=== PATIENT | male | born 1975 | race Caucasian/White ===

== ENCOUNTER 2017-06-16 14:41 | Inpatient (IN) | payer SELFPAY ==
[2017-06-16 18:12] VITALS: BMI 37.0
[2017-06-16] MEDS ORDERED: Acetaminophen 325 MG TAB PO PRN (18:15)
[2017-06-16] MEDS ORDERED: Ondansetron ODT 4 MG TAB PO PRN (18:15)
[2017-06-16] MEDS ORDERED: Dextrose 50% Abboject 50 ML SYRINGE SLOW IVP PRN (18:15)
[2017-06-16] MEDS ORDERED: HYDROcodone/Acetaminophen 5/325 mg Tablet PO PRN (18:15)
[2017-06-16] MEDS ORDERED: Ondansetron HCl/PF 4 MG/2 ML Vial IVP PRN (18:15)
[2017-06-16] MEDS ORDERED: Dextrose 5% in Water 1,000 ML IV PRN (18:15)
[2017-06-16] MEDS ORDERED: HumaLOG 300 UNITS/3 ML VIAL SC PRN ×2 (18:22)
[2017-06-16] MEDS ORDERED: Furosemide 20 MG/2 ML VIAL SLOW IVP SCH (18:30)
--- NOTE | 2017-06-16 18:53 | PDOC.FPRHP ---
- History of Present Illness Chief Complaint: SOB, leg pain History of Present Illness: 42 yo CM with PMHx DM2, HTN presented to outside ED for L leg pain and SOB. Pt has been treated for LLE cellulitis with PO clindamycin since 06/10 through PCP. Pt endorses two blisters that have denuded and have oozed clear watery fluid over last couple days. Denies purulent drainage. Redness and pain have not worsened or improved per pt. Denies fevers/chills. Last cellulitic infection was 02/28 and did not require hospitalization. Pt's BG tends to run 150-200 and controlled with oral meds. Yesterday, pt endorsed new onset SOB when laying flat requiring him to sleep in a chair. This has never happened before. Endorses 1 year hx of bilateral leg swelling. Chronic dry cough. Outside hospital completed workup and transferred him to [place] due to concern for new-onset heart failure. PCP: Latesha Code status: Full ED Course: Vancomycin - Allergies/Adverse Reactions Allergies Allergy/AdvReac Type Severity Reaction Status Date / Time No Known Allergies Allergy Unverified 06/16/17 18:43 - Home Medications Medication Instructions Recorded Confirmed Type Aspirin [Aspir-Low] 81 mg PO DAILY 06/16/17 06/16/17 History Clindamycin HCl 300 mg PO TID 06/16/17 06/16/17 History Lisinopril 20 mg PO DAILY 06/16/17 06/16/17 History glipiZIDE [Glipizide] 10 mg PO BID 06/16/17 06/16/17 History metFORMIN [Glucophage] 1,000 mg PO BID-WM 06/16/17 06/16/17 History - History PMHx: DM2, HTN PSHx: strabismus repair, tendon lengthening surgery in both feet FHx: Father - DM2. Mother - from breast cancer. No siblings. Social: Smokes infrequent cigars over last 20 years. Rare alcohol use. Denies drug use. - Review of Systems General: denies: fever/chills, weight/appetite/sleep changes Eyes: denies: eye pain, vision changes ENT: denies: nasal congestion, rhinorrhea Respiratory: reports: cough, shortness of breath Cardiovascular: reports: edema, orthopnea. denies: chest pain, paroxysmal nocturnal dyspnea Gastrointestinal: denies: nausea, vomiting, diarrhea Genitourinary: denies: incontinence, dysuria Skin: reports: lesions. denies: rashes Musculoskeletal: denies: pain, tenderness Neurological: denies: syncope, weakness Psychological: denies: anxiety, depression - Vital signs BP: 141/101 HR: 103 RR: 18 Tmax: 97.8 Pox: 98% on RA Wt: 116 kg - Physical Exam Constitutional: NAD, awake, alert and oriented, well developed HEENT: PERRLA, EOMI, grossly normal hearing, MMM, good dention, other (R eye laterally deviated) Neck: FROM, no JVD Heart: RRR, normal S1/S2, no murmurs/rubs/gallops, other (2+ pitting edema LLE to knee, 1+ RLE pitting edema to knee) Lungs: no respiratory distress, good air movement, no wheezing, other ( scattered rales loudest RLL) Abdomen: soft, non-tender, bowel sounds present Musculoskeletal: normal structure, normal tone Neurological: no focal deficit, CN II-XII intact, normal sensation Skin: capillary refill <2 seconds, other (circumferential erythema LLE proximal to ankle with large denuded blisters without drainage; no fluctuance or induration, minimally TTP; skin appears stretched in BLE; venous stasis changes on RLE medial malleolus and anterior distal escudero; chronic diabetic ulcers and onychomycosis changes to bilateral feet with swan-neck type deformities of a few toes; L 2nd toe with appearance of dry gangrene at tip) Heme/Lymphatic: no purpura, no petechia Psychiatric: normal mood and affect, other (fair insight) FMR H&P: Results - Labs Result Diagrams: 06/21/17 04:32 06/21/17 04:32 Lab results: CBC: WBC 9.0, Hgb 10.8, Plt 266, MCV 66.1 CMP: Na 142, K 3.6, Cl 104, CO2 26, BUN 16, Cr 0.9, Gluc 92, Ca 9.0, TProt 7.6, Alb 3.7, AST 39, ALT 40, ALK PH 75 BNP: 520, lactate 1.8, D-dimer 1.29, UA neg, UDS neg - EKG Interpretation EKG: sinus tachycardia, complete LBBB - Radiology Interpretation Chest x-ray Status: image reviewed by me, report reviewed by me Additional comment: mild pulm vascular congetsion, borderline heart size, poss small R pleural effusion CT scan - chest Status: report reviewed by me Additional comment: small-moderate pleural effusion in RLL, mild diffuse ground glass opacities, no PE FMR H&P: A/P - Problem List (1) Cellulitis of left lower extremity Current Visit: Yes Status: Resolved Code(s): L03.116 - CELLULITIS OF LEFT LOWER LIMB Assessment and Plan: Pt has not improved on 4 days clindamycin. Will add levaquin to clindamycin for additional coverage including pseudomonas. Not concerned for MRSA at this time so will hold vanc given in ED. Afebrile with no sign of sepsis or bacteremia. Oral norco prn for pain control. Repeat CBC in AM. Lactate normal. Control BG. Wound care consulted. Admit to medical with expected 2 day stay. (2) Elevated brain natriuretic peptide (BNP) level Current Visit: Yes Status: Acute Code(s): R79.89 - OTHER SPECIFIED ABNORMAL FINDINGS OF BLOOD CHEMISTRY Assessment and Plan: New SOB with elevated BNP and signs of vascular congestion and pleural effusion on imaging were reasons for transfer to [place]. Order ECHO. Pt has chronic leg swelling for 1 year. Will give IV lasix now and monitor amount of diuresis. Continue IV vs PO in AM. Fluid restriction. Pending ECHO results, will decide necessary treatment. Not hypoxic but O2 prn. No chest pain. EKG showed LBBB but unsure if new. Trops neg x2. Repeat third. (3) Diabetes mellitus type 2, controlled Current Visit: Yes Status: Acute Code(s): E11.9 - TYPE 2 DIABETES MELLITUS WITHOUT COMPLICATIONS Qualifiers: Diabetes mellitus ferry terminal supervisor insulin use: without ferry terminal supervisor use Diabetes mellitus complication status: with neurologic complications Diabetes mellitus complication detail: with polyneuropathy Qualified Code(s): E11.42 - Type 2 diabetes mellitus with diabetic polyneuropathy Assessment and Plan: Continue home glipizide. Hold metformin in case need for contrast. SSI and accuchecks. (4) Hypertension Current Visit: Yes Status: Acute Code(s): I10 - ESSENTIAL (PRIMARY) HYPERTENSION Assessment and Plan: Continue home meds and monitor. (5) Onychomycosis of multiple toenails with type 2 diabetes mellitus and peripheral neuropathy Current Visit: Yes Status: Acute Code(s): E11.42 - TYPE 2 DIABETES MELLITUS WITH DIABETIC POLYNEUROPATHY; E11.69 - TYPE 2 DIABETES MELLITUS WITH OTHER SPECIFIED COMPLICATION; B35.1 - TINEA UNGUIUM Assessment and Plan: Chronic diabetic callous changes along with fungal changes. Needs podiatry evaluation - will attempt to consult one in AM. If unavailable, consider general surgery as concern for dry gangrene with tip of L 2nd toe. Wound care eval/tx as well. Supposed to see podiatry outpt but never went. (6) Microcytic anemia Current Visit: Yes Status: Acute Code(s): D50.9 - IRON DEFICIENCY ANEMIA, UNSPECIFIED Assessment and Plan: Microcytic anemia with Hgb 10.8. Check iron studies and treat accordingly. - Plan Disposition/LOS: Admit to medical. 2 day stay expected. Attending Addendum - Attending Addendum Date/Time: 06/21/17 4977 I personally evaluated the patient and discussed the management with Dr. Valdez. I agree with the History, Examination, Assessment and Plan documented above with any addition or exceptions noted below. 42 y.o. with poorly controlled DM with suspected PVD with LLE cellulitis unresponsive to OP tx, severely onycholytic nails, suspicious appearing L 2nd toe for grangrene and new onset symptoms c/w CHF, admitted for treatment of cellulitis and w/u and treatment of CHF.
[2017-06-16] MEDS: glipiZIDE 10 MG TAB PO SCH (19:55)
[2017-06-16 20:17] LABS: Troponin I Less than 0.010 ng/mL (< 0.028)
[2017-06-16] MEDS: Clindamycin/D5W 300 MG/50 ML BAG IVPB SCH (21:19)
[2017-06-17] MEDS: Clindamycin/D5W 300 MG/50 ML BAG IVPB SCH ×4 (02:25→22:53)
[2017-06-17 05:13] LABS: Anion Gap 11 mmol/L (10-20); BUN (Urea Nitrogen) 20 mg/dL (8.9-20.6); Calc. Creatinine Clearance 174 mL/min (70-130); Calcium 8.7 mg/dL (7.8-10.44); Carbon Dioxide 29 mmol/L (22-29); Chloride 103 mmol/L (98-107); Estimated GFR-MDRD 84; Glucose 76 mg/dL (70-105); Iron 18 ug/dL (65-175); Iron Binding Capacity, Total 380 mcg/dL (261-462); Potassium 3.6 mmol/L (3.5-5.1); Sodium 139 mmol/L (136-145)
[2017-06-17 05:16] LABS: #Basophils 0.1 thou/uL (0.0-0.2); #Eosinphils 0.4 thou/uL (0.0-0.7); #Lymphocytes 1.5 thou/uL (1.20-3.40); #Monocytes 0.5 thou/uL (0.11-0.59); #Neutrophils 4.2 thou/uL (1.40-6.50); %Basophils 0.8 % (0.0-1.0); %Eosinophils 5.6 % (0.0-10.0); %Lymphocytes 22.9 % (21.0-51.0); %Monocytes 7.5 % (0.0-10.0); %Neutrophils 63.3 % (42.0-75.0); Hemoglobin 10.1 g/dL (14.0-18.0); Mean Corpuscular HGB CONC 29.7 g/dL (32.0-36.0); Mean Corpuscular Hemoglobin 20.6 pg (27.0-31.0); Mean Corpuscular Volume 69.4 fl (80.0-94.0); Mean Platelet Volume 9.6 fL (7.4-10.4); Platelet Count 245 thou/uL (130-400); RBC Distribution Width 16.1 % (11.5-14.5); Red Blood Cell (RBC) Count 4.88 mill/uL (4.70-6.10); White Blood Cell (WBC) Count 6.7 thou/uL (4.8-10.8)
[2017-06-17 05:17] LABS: Hypochromia SLIGHT = 6-15 cells (100X) (0-5/hpf); MDiff Complete? YES; Microcytosis MODERATE=15-30 cells (100X) (0-5/hpf); Ovalocytes SLIGHT = 2-5 cells (100X) (0-1/hpf); PLT Morphology Comment Appears Adequate
[2017-06-17] MEDS: glipiZIDE 10 MG TAB PO SCH ×2 (08:38→21:09)
[2017-06-17] MEDS: Lisinopril 20 MG TAB PO SCH (08:38)
[2017-06-17] MEDS: Aspirin 81 mg Enteric Coated Tablet PO SCH (08:38)
--- NOTE | 2017-06-17 08:48 | PDOC.FM ---
- Subjective Subjective: No acute events overnight. Pt reports the redness and pain have improved. Denies fever, chills, cp, sob. Does endorse PND, orthopnea and chronic LE edema. - Objective Vital Signs & Weight: Vital Signs (12 hours) Temp Pulse Resp BP BP Pulse Ox 06/17/17 08:38 134/99 H 06/17/17 04:24 97.6 F 96 20 139/99 H 98 06/17/17 00:35 97.8 F 105 H 22 H 114/80 96 06/16/17 21:00 97.8 F 106 H 20 94 L Weight Weight 123.831 kg I&O: 06/16/17 06/17/17 06/18/17 06:59 06:59 06:59 Intake Total 950 Balance 950 Result Diagrams: 06/17/17 04:32 06/17/17 04:32 <Mal Pickering - Last Filed: 06/17/17 09:01> - Objective Vital Signs & Weight: Vital Signs (12 hours) Temp Pulse Resp BP BP Pulse Ox 06/17/17 08:38 134/99 H 06/17/17 08:00 98.5 F 98 14 134/99 H 100 06/17/17 04:24 97.6 F 96 20 139/99 H 98 06/17/17 00:35 97.8 F 105 H 22 H 114/80 96 Weight Weight 123.831 kg I&O: 06/16/17 06/17/17 06/18/17 06:59 06:59 06:59 Intake Total 950 Balance 950 Result Diagrams: 06/17/17 04:32 06/17/17 04:32 <Rocco Powers - Last Filed: 06/17/17 11:55> Phys Exam - Physical Examination Constitutional: NAD HEENT: PERRLA, moist MMs, sclera anicteric Respiratory: no wheezing, no rales, no rhonchi, clear to auscultation bilateral diminished rt base Cardiovascular: RRR, no significant murmur, no rub Gastrointestinal: soft, non-tender, no distention, positive bowel sounds Musculoskeletal: pulses present, edema present 1-2+ pitting edema to knee Neurological: non-focal, moves all 4 limbs Deviation from normal: erythematous, weeping denuded area of skin LLE, redness w /in marked borders <Mal Pickering - Last Filed: 06/17/17 09:01> Dx/Plan (1) Cellulitis of left lower extremity Code(s): L03.116 - CELLULITIS OF LEFT LOWER LIMB Status: Acute (2) Diabetes mellitus type 2, controlled Code(s): E11.9 - TYPE 2 DIABETES MELLITUS WITHOUT COMPLICATIONS Status: Acute QualifierTitle: Diabetes mellitus office receptionist insulin use: without office receptionist use Diabetes mellitus complication status: with neurologic complications Diabetes mellitus complication detail: with polyneuropathy Qualified Code(s): E11.42 - Type 2 diabetes mellitus with diabetic polyneuropathy (3) Elevated brain natriuretic peptide (BNP) level Code(s): R79.89 - OTHER SPECIFIED ABNORMAL FINDINGS OF BLOOD CHEMISTRY Status : Acute (4) Hypertension Code(s): I10 - ESSENTIAL (PRIMARY) HYPERTENSION Status: Acute (5) Onychomycosis of multiple toenails with type 2 diabetes mellitus and peripheral neuropathy Code(s): E11.42 - TYPE 2 DIABETES MELLITUS WITH DIABETIC POLYNEUROPATHY; E11.69 - TYPE 2 DIABETES MELLITUS WITH OTHER SPECIFIED COMPLICATION; B35.1 - TINEA UNGUIUM Status: Acute (6) Microcytic anemia Code(s): D50.9 - IRON DEFICIENCY ANEMIA, UNSPECIFIED Status: Acute - Plan Plan: 1) Cellulitis of LLE: -cont clinda and levaquin. This is likely 2/2 chronic venous stasis w/ superimposed infection. Elevate legs, supportive care. Cont wound care. 2) DMII: - cont home meds 3) Elevated BNP: echo pending, concern for new onset CHF. Pitting LE edema to knees b/l with skin changes of chronic venous stasis. 4) HTN: Monitor, currently stable 5) Onychomycosis toenails 2/2 DMII: -consider podiatry consult vs OP f/u for chronic diabetic foot wound care 6) Microcytic anemia: -low iron, add Fe sulfate 325 BID with Vit c 500 BID + stool softener <Mal Pickering - Last Filed: 06/17/17 09:01> Attending Addendum - Attending Addendum Date/Time: 06/17/17 0553 I personally evaluated the patient and discussed the management with Dr. Pickering. I agree with the History, Examination, Assessment and Plan documented above with any addition or exceptions noted below. Patient here for RLE cellulitis in setting of likely venous stasis disease. We will continue on IV abx and consult wound care. He feels his pain is improved. Patient also has symptoms and labs consistent with possible new onset HF. Obtaining TTE and will consult cardiology if abnormal. <Rocco Powers - Last Filed: 06/17/17 11:55>
[2017-06-17] MEDS: Ferrous Sulfate 325 MG TAB PO SCH (16:28)
[2017-06-17] MEDS: Ascorbic Acid 500 mg Chewable Tablet PO SCH (16:28)
[2017-06-17] MEDS ORDERED: Furosemide 20 MG TAB PO SCH (18:00)
[2017-06-17] MEDS ORDERED: Guaifenesin DM 100-10/5 ML UDCUP PO PRN (18:35)
[2017-06-18] MEDS: Clindamycin/D5W 300 MG/50 ML BAG IVPB SCH ×4 (03:56→20:15)
[2017-06-18 04:18] LABS: #Basophils 0.1 thou/uL (0.0-0.2); #Eosinphils 0.4 thou/uL (0.0-0.7); #Monocytes 0.6 thou/uL (0.11-0.59); #Neutrophils 4.8 thou/uL (1.40-6.50); %Basophils 0.8 % (0.0-1.0); %Lymphocytes 25.3 % (21.0-51.0); Hemoglobin 10.5 g/dL (14.0-18.0); Mean Corpuscular HGB CONC 30.5 g/dL (32.0-36.0); Mean Corpuscular Hemoglobin 21.2 pg (27.0-31.0); Mean Corpuscular Volume 69.6 fl (80.0-94.0); Mean Platelet Volume 9.5 fL (7.4-10.4); Platelet Count 254 thou/uL (130-400); RBC Distribution Width 16.1 % (11.5-14.5); Red Blood Cell (RBC) Count 4.93 mill/uL (4.70-6.10); White Blood Cell (WBC) Count 7.8 thou/uL (4.8-10.8)
[2017-06-18 04:25] LABS: Anion Gap 13 mmol/L (10-20); BUN (Urea Nitrogen) 22 mg/dL (8.9-20.6); Calc. Creatinine Clearance 181 mL/min (70-130); Calcium 8.8 mg/dL (7.8-10.44); Carbon Dioxide 27 mmol/L (22-29); Chloride 103 mmol/L (98-107); Estimated GFR-MDRD 88; Glucose 60 mg/dL (70-105); Potassium 3.8 mmol/L (3.5-5.1); Sodium 139 mmol/L (136-145)
[2017-06-18] MEDS ORDERED: Furosemide 20 MG/2 ML VIAL SLOW IVP SCH ×2 (07:00→14:00)
[2017-06-18] MEDS: Ascorbic Acid 500 mg Chewable Tablet PO SCH ×2 (08:36→18:03)
[2017-06-18] MEDS: glipiZIDE 10 MG TAB PO SCH ×2 (08:37→20:17)
[2017-06-18] MEDS: Ferrous Sulfate 325 MG TAB PO SCH ×2 (08:37→18:02)
[2017-06-18] MEDS: Lisinopril 20 MG TAB PO SCH (08:37)
[2017-06-18] MEDS: Aspirin 81 mg Enteric Coated Tablet PO SCH (08:37)
--- NOTE | 2017-06-18 08:48 | PDOC.FM ---
- Subjective Subjective: Pt had no acute events overnight. He has persistent LE edema to above the knees , although he reports improvement in his SOB that was present on admission. Still c/o orthopnea. Denies cp, sob, nvdc, diaphoresis, fever, chill, sweats and pain around erythematous LE. - Objective Vital Signs & Weight: Vital Signs (12 hours) Temp Pulse Resp BP BP Pulse Ox 06/18/17 08:00 98.6 F 85 16 163/85 H 97 06/18/17 07:52 97.9 F 101 H 16 119/81 98 06/18/17 04:15 98 127/87 98 Weight Admit Weight 123.831 kg Weight 123.831 kg I&O: 06/17/17 06/18/17 06/19/17 06:59 06:59 06:59 Intake Total 950 Balance 950 Result Diagrams: 06/18/17 03:21 06/18/17 03:21 <Mal Pickering - Last Filed: 06/18/17 09:02> - Objective Vital Signs & Weight: Vital Signs (12 hours) Temp Pulse Resp BP BP Pulse Ox 06/18/17 08:00 98.6 F 85 16 163/85 H 97 06/18/17 07:52 97.9 F 101 H 16 119/81 98 06/18/17 04:15 98 127/87 98 Weight Admit Weight 123.831 kg Weight 123.831 kg I&O: 06/17/17 06/18/17 06/19/17 06:59 06:59 06:59 Intake Total 950 Balance 950 Result Diagrams: 06/18/17 03:21 06/18/17 03:21 <Rocco Powers - Last Filed: 06/18/17 13:00> Phys Exam - Physical Examination Constitutional: NAD HEENT: PERRLA, sclera anicteric Neck: no nodes, full ROM Respiratory: no wheezing, no rales, no rhonchi, clear to auscultation bilateral diminished bases Cardiovascular: RRR, no significant murmur, no rub Gastrointestinal: soft, non-tender, no distention, positive bowel sounds Musculoskeletal: pulses present, edema present 2+ pitting to above knees Neurological: non-focal, moves all 4 limbs Skin: cap refill <2 seconds Deviation from normal: erythematous skin changes with denuded skin LLE, stable from yesterday <Mal Pickering - Last Filed: 06/18/17 09:02> Dx/Plan (1) HFrEF (heart failure with reduced ejection fraction) Code(s): I50.20 - UNSPECIFIED SYSTOLIC (CONGESTIVE) HEART FAILURE Status: Acute (2) Cellulitis of left lower extremity Code(s): L03.116 - CELLULITIS OF LEFT LOWER LIMB Status: Acute (3) Diabetes mellitus type 2, controlled Code(s): E11.9 - TYPE 2 DIABETES MELLITUS WITHOUT COMPLICATIONS Status: Acute QualifierTitle: Diabetes mellitus termite control technician insulin use: without termite control technician use Diabetes mellitus complication status: with neurologic complications Diabetes mellitus complication detail: with polyneuropathy Qualified Code(s): E11.42 - Type 2 diabetes mellitus with diabetic polyneuropathy (4) Elevated brain natriuretic peptide (BNP) level Code(s): R79.89 - OTHER SPECIFIED ABNORMAL FINDINGS OF BLOOD CHEMISTRY Status : Acute (5) Hypertension Code(s): I10 - ESSENTIAL (PRIMARY) HYPERTENSION Status: Acute (6) Onychomycosis of multiple toenails with type 2 diabetes mellitus and peripheral neuropathy Code(s): E11.42 - TYPE 2 DIABETES MELLITUS WITH DIABETIC POLYNEUROPATHY; E11.69 - TYPE 2 DIABETES MELLITUS WITH OTHER SPECIFIED COMPLICATION; B35.1 - TINEA UNGUIUM Status: Acute (7) Microcytic anemia Code(s): D50.9 - IRON DEFICIENCY ANEMIA, UNSPECIFIED Status: Acute - Plan Plan: 1) HFrEF: BNP 520s. Negative CTA and LLE venous duplex. Pt has severely reduced EF estimated at 10-15%. We will switch to IV lasix and continue aggressive diuresis. Cardiology will be consulted, appreciate recs. Clinically, edema unchanged from prior exam. Will Monitor strict Is/Os. Currently on lisinopril with adequate control of BP. Will need BB, but for now continue with aggressive diuresis. Monitor daily BMPs 2/2 diuresis. Elyte replacement prn 2)Cellulitis of LLE: -cont clinda and levaquin for now and add IV lasix. Given duration of pts symptoms and recent echo results showing EF of 10-15% this is likely 2/2 chronic venous stasis. The erythema is unchanged from yesterdays exam, non tender to palpation. Will continue diuretics in hopes to improve symptoms. Cont wound care 3) DMII: - cont home meds, accuchecks achs. Stable. 4) Elevated BNP: 2/2 #1. See above 5) HTN: Monitor, currently stable. In light of HFrEF, continue lisinopril. Diurese and consider BB pending cardiology recs 6) Onychomycosis toenails 2/2 DMII: -will need OP management of DM foot callus. 7) Microcytic anemia: -cont Iron, stool softener and vit c <Mal Pickering - Last Filed: 06/18/17 09:02> Attending Addendum - Attending Addendum Date/Time: 06/18/17 9664 I personally evaluated the patient and discussed the management with Dr. Pickering. I agree with the History, Examination, Assessment and Plan documented above with any addition or exceptions noted below. Patient reports improvement in his foot pain. He will continue on antibiotics and wound care for cellulitis. His Echo has resulted showing severe hypokinesis and an EF of 10-15% Lasix has been started and we will consult Cardiology for new onset sCHF due to some unspecified cardiomyopathy. Will transfer to tele so we can monitor for heart rhythm disturbances. <Rocco Powers - Last Filed: 06/18/17 13:00>
[2017-06-18] MEDS ORDERED: Furosemide 20 MG TAB PO SCH (09:00)
[2017-06-18] MEDS ORDERED: Docusate 100 MG CAP PO SCH (09:15)
--- NOTE | 2017-06-18 13:58 | CON ---
DATE OF CONSULTATION: 06/18/2017 INDICATION FOR CONSULTATION: A 42-year-old gentleman who has been newly diagnosed with severe cardio myopathy. 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 He h ad noticed for the last 6 weeks or so that he became more short of breath and had dyspnea on exertion and had lower extremity edema. He then started to develop what appear to be cellulitis of lower ext remity, presented to emergency room and was noted to have bilateral lower extremity edema all the way up to the groin. He had been complaining of shortness of breath and coughing. He had no viral illn ess that he was aware of. He has lost in the last year so about 30 pounds due to trying to watch his diet, but he presented with the ulceration or oozing liquid from the lower extremities, mainly on th e left side, left lower leg. He also said his blood pressure has been elevated at times up to 150-20 0. His blood sugar was 150-200. He then was admitted here after complaining of the above symptoms. Once he was here, he did undergo treatment with I believe antibiotics, but the lower extremity edema persisted. Echocardiogram was performed that showed severe decrease in left ventricular systolic fu nction. Ejection fraction was less than 20%. We are being advised to see him at this time, there is uncertain etiology of his cardiomyopathy. At this time, he denied any use in the past of illicit dr ug use. He has had no recent viral illnesses. He has had no chest pain. He did develop shortness o f breath. He is a diabetic; however, and may have severe underlying coronary artery disease as the p ossible etiology of the cardiomyopathy. He was unaware that he had any cardiac problems. He has no early family history of heart disease. He has smoked cigars for the last 20 years, only 1 or 2 a day and has had no other significant risk factors except for the hypertension and diabetes. PAST MEDICAL HISTORY: Significant for the diabetes, hypertension. He has had strabismus. He has villarreal d tendon repairs. He has had a surgery in both feet. He has obesity. FAMILY HISTORY: His mother from breast cancer. Father has diabetes. I think there is no other early family history of heart disease that he is aware of. There is no early cardiac deaths. SOCIAL HISTORY: He smoked cigars. He has rare alcohol use. He denied any illicit drug use. REVIEW OF SYSTEMS: Twelve point review of systems was unremarkable except what was noted in the hist ory of present illness with the dyspnea on exertion and shortness of breath and also paroxysmal noctu rnal dyspnea and orthopnea. Otherwise, his review of systems was unremarkable except for the lower e xtremity edema. He usually works about 2 jobs and stays very active. He does not get any physical e xercise however. ALLERGIES: None. MEDICATIONS: Prior to admission included aspirin 81 mg a day, clindamycin, lisinopril 20 mg a day, g lipizide 10 mg b.i.d., and metformin 1000 mg b.i.d. PHYSICAL EXAMINATION: GENERAL: Reveals a middle-aged gentleman who is in no acute distress at this time. He just finished eating lunch. He is alert and oriented, very pleasant. VITAL SIGNS: Blood pressure was 115/77, heart rate is 106 and is regular, respiratory rate 16. He i s afebrile. HEENT: Shows the head to be normocephalic, atraumatic. Carotid pulses are present without any bruit s. CHEST: His chest is actually clear to auscultation without any rales, rhonchi or wheezing. CARDIOVASCULAR: Exam reveals a regular rhythm, a split second heart sound was noted. There were no gross murmurs, heaves, thrills, bruits or rubs. ABDOMEN: Shows morbid obesity with positive bowel sounds. No organomegaly, masses or tenderness are noted. EXTREMITIES: Show no clubbing or cyanosis; however, the left lower extremity from just above the ank le the foot is wrapped in surgical dressing due to the ulceration. He has edema all the way up to th e upper thighs. Pedal pulses are present. NEUROLOGIC: The patient appears to be intact. He has normal strength and normal tone. LABORATORY AND DATA: Shows a creatinine 0.94, potassium 3.8, blood sugar was 60. Hemoglobin was 10. 5, platelet count was 254,000. IMPRESSION: 1. Newly diagnosed severe cardiomyopathy of uncertain etiology. This may be due to underlying coron paramjit artery disease or may be due to genetics abnormalities. We will need to at some point in time pr ior to discharge this patient will need to undergo cardiac catheterization to evaluate for possible u nderlying coronary artery disease as an etiology of his cardiomyopathy. If the ejection fraction barkley s not improve prior to discharge after diuresis, then he will need a LifeVest and if the ejection fra ction does not improve he will eventually need to undergo AICD implant due to high risk of sudden car diac . 2. With his congestive heart failure symptoms and most likely has lower extremity edema is due to th e heart failure. We will try to diurese the patient as much as possible. Once he is more stable he will need to undergo the cardiac catheterization. 3. Diabetes, it will be dealt with by the primary care service. 4. Hypertension, appears to be under good control at this time. Further workup will depend on the how the patient diureses and also a cardiac catheterization. Thank you for asking us to see this gentleman. We will try to most likely stop his lisinopril and st art him on Entresto. If he is able tolerate this, we will certainly try to increase the diuretics pr ior to this and start low dose of a beta rose marie.
[2017-06-18] MEDS: Furosemide 40 MG/4 ML VIAL SLOW IVP SCH (14:47)
[2017-06-18] MEDS: Carvedilol 3.125 MG TAB PO SCH (18:02)
[2017-06-18] MEDS: Famotidine 20 MG TAB PO SCH (20:16)
[2017-06-18] MEDS: Docusate 100 MG CAP PO SCH (20:18)
[2017-06-19] MEDS: Clindamycin/D5W 300 MG/50 ML BAG IVPB SCH (03:21)
[2017-06-19] MEDS: Furosemide 40 MG/4 ML VIAL SLOW IVP SCH ×2 (05:22→14:44)
[2017-06-19 05:27] LABS: #Eosinphils 0.4 thou/uL (0.0-0.7); #Lymphocytes 1.8 thou/uL (1.20-3.40); #Monocytes 0.6 thou/uL (0.11-0.59); #Neutrophils 4.4 thou/uL (1.40-6.50); %Basophils 0.6 % (0.0-1.0); %Eosinophils 5.8 % (0.0-10.0); %Lymphocytes 24.7 % (21.0-51.0); %Monocytes 8.3 % (0.0-10.0); %Neutrophils 60.6 % (42.0-75.0); Hemoglobin 10.1 g/dL (14.0-18.0); Mean Corpuscular HGB CONC 30.1 g/dL (32.0-36.0); Mean Corpuscular Hemoglobin 20.8 pg (27.0-31.0); Mean Corpuscular Volume 68.9 fl (80.0-94.0); Mean Platelet Volume 9.2 fL (7.4-10.4); Platelet Count 258 thou/uL (130-400); RBC Distribution Width 16.1 % (11.5-14.5); Red Blood Cell (RBC) Count 4.87 mill/uL (4.70-6.10); White Blood Cell (WBC) Count 7.3 thou/uL (4.8-10.8)
[2017-06-19 05:38] LABS: Anion Gap 12 mmol/L (10-20); BUN (Urea Nitrogen) 23 mg/dL (8.9-20.6); Calc. Creatinine Clearance 185 mL/min (70-130); Calcium 8.8 mg/dL (7.8-10.44); Carbon Dioxide 27 mmol/L (22-29); Chloride 105 mmol/L (98-107); Estimated GFR-MDRD Greater than 90; Glucose 83 mg/dL (70-105); Potassium 3.7 mmol/L (3.5-5.1); Sodium 140 mmol/L (136-145)
[2017-06-19] MEDS ORDERED: Clindamycin 150 MG CAP PO SCH ×2 (07:45→12:00)
[2017-06-19] MEDS: Ascorbic Acid 500 mg Chewable Tablet PO SCH ×2 (08:21→17:35)
[2017-06-19] MEDS: Lisinopril 20 MG TAB PO SCH (08:21)
[2017-06-19] MEDS: Carvedilol 3.125 MG TAB PO SCH ×2 (08:22→17:35)
[2017-06-19] MEDS: Potassium Chloride 10 MEQ TAB PO SCH (08:22)
[2017-06-19] MEDS: Docusate 100 MG CAP PO SCH ×2 (08:22→21:10)
[2017-06-19] MEDS: Ferrous Sulfate 325 MG TAB PO SCH ×2 (08:22→17:35)
[2017-06-19] MEDS: Aspirin 81 mg Enteric Coated Tablet PO SCH (08:23)
[2017-06-19] MEDS: Famotidine 20 MG TAB PO SCH ×2 (08:23→21:10)
[2017-06-19] MEDS: glipiZIDE 10 MG TAB PO SCH ×2 (08:23→21:10)
--- NOTE | 2017-06-19 13:38 | PDOC.FM ---
- Subjective Subjective: Pt had no acute events overnight. He states his sob and orthopnea have improved. Denies cp. Denies excessive alcohol intake. - Objective Vital Signs & Weight: Vital Signs (12 hours) Temp Pulse Resp BP BP Pulse Ox 06/19/17 11:35 97.1 F L 98 18 113/76 97 06/19/17 08:21 132/82 06/19/17 07:22 98.1 F 96 18 132/82 95 06/19/17 03:36 97.7 F 93 18 108/71 94 L Weight Admit Weight 123.831 kg Weight 122.2 kg I&O: 06/18/17 06/19/17 06/20/17 06:59 06:59 06:59 Intake Total 1340 Output Total 3475 Balance -2135 Result Diagrams: 06/19/17 04:47 06/19/17 04:47 <Mal Pickering - Last Filed: 06/19/17 13:36> - Objective Vital Signs & Weight: Vital Signs (12 hours) Temp Pulse Resp BP Pulse Ox 06/20/17 08:00 97.7 F 89 14 133/91 H 96 06/20/17 04:00 97.6 F 95 17 124/76 97 06/20/17 00:00 96 F L 88 15 138/94 H 99 Weight Admit Weight 273 lb Weight 263 lb 10.766 oz I&O: 06/19/17 06/20/17 06/21/17 06:59 06:59 06:59 Intake Total 1340 1815 Output Total 3475 3500 Balance -2135 -1685 Result Diagrams: 06/20/17 06:11 06/20/17 06:11 <Sudarshan Matias - Last Filed: 06/20/17 11:51> Phys Exam - Physical Examination Constitutional: NAD HEENT: PERRLA, sclera anicteric Neck: no nodes, no JVD Respiratory: no wheezing, no rales, no rhonchi, clear to auscultation bilateral Cardiovascular: RRR, no significant murmur, no rub Gastrointestinal: soft, non-tender, no distention, positive bowel sounds Musculoskeletal: pulses present, edema present 2+ pitting to above knees, mildly improved from prior Neurological: non-focal, moves all 4 limbs Psychiatric: normal affect Skin: cap refill <2 seconds <Mal Pickering - Last Filed: 06/19/17 13:36> Dx/Plan (1) HFrEF (heart failure with reduced ejection fraction) Code(s): I50.20 - UNSPECIFIED SYSTOLIC (CONGESTIVE) HEART FAILURE Status: Acute (2) Cellulitis of left lower extremity Code(s): L03.116 - CELLULITIS OF LEFT LOWER LIMB Status: Acute (3) Diabetes mellitus type 2, controlled Code(s): E11.9 - TYPE 2 DIABETES MELLITUS WITHOUT COMPLICATIONS Status: Acute QualifierTitle: Diabetes mellitus group home insulin use: without matrix plater use Diabetes mellitus complication status: with neurologic complications Diabetes mellitus complication detail: with polyneuropathy Qualified Code(s): E11.42 - Type 2 diabetes mellitus with diabetic polyneuropathy (4) Elevated brain natriuretic peptide (BNP) level Code(s): R79.89 - OTHER SPECIFIED ABNORMAL FINDINGS OF BLOOD CHEMISTRY Status : Acute (5) Hypertension Code(s): I10 - ESSENTIAL (PRIMARY) HYPERTENSION Status: Acute (6) Onychomycosis of multiple toenails with type 2 diabetes mellitus and peripheral neuropathy Code(s): E11.42 - TYPE 2 DIABETES MELLITUS WITH DIABETIC POLYNEUROPATHY; E11.69 - TYPE 2 DIABETES MELLITUS WITH OTHER SPECIFIED COMPLICATION; B35.1 - TINEA UNGUIUM Status: Acute (7) Microcytic anemia Code(s): D50.9 - IRON DEFICIENCY ANEMIA, UNSPECIFIED Status: Acute - Plan Plan: 1) HFrEF: Cont IV lasix and current medications. Monitor Is/Os. Plan will be cath after continued diurresis. Monitor elytes and replace prn. 2)Cellulitis of LLE: -likely 2/2 chronic venous stasis. Will dc abx today. Continue to monitor. Cont wound care. 3) DMII: - cont home meds, accuchecks achs. Stable. Cont plan of care 4) Elevated BNP: 2/2 #1. See above 5) HTN: Monitor, currently stable. Continue diuresis 6) Onychomycosis toenails 2/2 DMII: -will need OP management of DM foot callus. -stable. 7) Microcytic anemia: -cont Iron, stool softener and vit c -will need further OP workup. Hgb stable. <Mal Pickering - Last Filed: 06/19/17 13:36> Attending Addendum - Attending Addendum Date/Time: 06/20/17 1150 I personally evaluated the patient and discussed the management with Dr. Pickering. I agree with the History, Examination, Assessment and Plan documented above with any addition or exceptions noted below. Continue to treat cellulitis and acute exacerbation of CHF. <Sudarshan Matias - Last Filed: 06/20/17 11:51>
--- NOTE | 2017-06-19 15:28 | PDOC.CTH ---
<Kelin Carter - Last Filed: 06/19/17 15:23> Cardiology Progress Note - Subjective The pt seen and examined. No overnight events. No cardiac complaints. He stated he could sleep with Nocturnal dyspnea last night. - Objective Vital Signs Temp Pulse Resp BP BP Pulse Ox 06/19/17 11:35 97.1 F L 98 18 113/76 97 06/19/17 08:21 132/82 06/19/17 07:22 98.1 F 96 18 132/82 95 06/19/17 03:36 97.7 F 93 18 108/71 94 L Admit Weight 273 lb Weight 269 lb 6.478 oz 06/18/17 06/19/17 06/20/17 06:59 06:59 06:59 Intake Total 1340 Output Total 3475 Balance -2135 - Physical Examination General/Neuro: alert & oriented x3 Neck: no JVD present Lungs: CTA Heart: RRR Abdomen: soft Extremities: other: (Dressing to LLE; 3+ pitting edema to Bilat foot.) - Telemetry Telemetry Rhythm: SR with BBB - Labs Result Diagrams: 06/19/17 04:47 06/19/17 04:47 Troponin/CKMB Troponin I Less than 0.010 ng/mL (< 0.028) 06/16/17 19:39 - Assessment/Plan 1. Acute on Chronic Systolic HF - Echo on 06/18/17 showed EF 10-15%, severe global hypokinesis, mod dilated LA, and mild MR and TR. His Breathing has been improved with Lasix 40mg IV BID, Lisinopril. Coreg and ASA 2. Severe Ischemic CMY - Plan for Cardiac cath on 06/21/17 for possible CAD. If normal CAD, D/c home with LifeVest and change Lisinopril to Entresto. 3. HTN - stable with current medications 4. DM type 2 - managed by PCP 5. Anemia - Hgb 10.1 today; on Iron supplement 6. LLE Cellulitis - on IV antibiotics. Managed by PCP and wound care team 7. Current smoker - Smoking cessation education given to the pt MAR reviewed Review of Systems - Review of Systems Constitutional: reports: no symptoms reported EENTM: reports: no symptoms reported Respiratory: reports: no symptoms reported Cardiac (ROS): reports: no symptoms reported ABD/GI: reports: no symptoms reported Musculoskeletal: reports: no symptoms reported Skin: reports: no symptoms reported <Minoo Baxter - Last Filed: 06/20/17 00:14> Cardiology Progress Note - Objective Vital Signs Temp Pulse Resp BP Pulse Ox 06/19/17 21:10 98.3 F 94 22 H 06/19/17 19:10 98.3 F 94 22 H 133/96 H 99 06/19/17 15:05 97.4 F L 96 24 H 134/90 100 Admit Weight 273 lb Weight 269 lb 6.478 oz 06/18/17 06/19/17 06/20/17 06:59 06:59 06:59 Intake Total 1340 720 Output Total 3475 2700 Balance -2134 - Labs Result Diagrams: 06/19/17 04:47 06/19/17 04:47 Troponin/CKMB Troponin I Less than 0.010 ng/mL (< 0.028) 06/16/17 19:39 - Assessment/Plan Pt. seen and eval. by me. I agree with the A/P by the PHOTO FINISHER. We discussed the pt. and plan.
[2017-06-20] MEDS: Furosemide 40 MG/4 ML VIAL SLOW IVP SCH ×2 (05:39→14:59)
[2017-06-20 06:28] LABS: #Basophils 0.1 thou/uL (0.0-0.2); #Eosinphils 0.5 thou/uL (0.0-0.7); #Lymphocytes 1.7 thou/uL (1.20-3.40); #Monocytes 0.5 thou/uL (0.11-0.59); #Neutrophils 5.1 thou/uL (1.40-6.50); %Lymphocytes 21.7 % (21.0-51.0); %Monocytes 6.8 % (0.0-10.0); %Neutrophils 64.5 % (42.0-75.0); Hemoglobin 11.2 g/dL (14.0-18.0); Mean Corpuscular Hemoglobin 21.4 pg (27.0-31.0); Mean Corpuscular Volume 69.1 fl (80.0-94.0); Mean Platelet Volume 9.2 fL (7.4-10.4); Platelet Count 276 thou/uL (130-400); RBC Distribution Width 16.3 % (11.5-14.5); Red Blood Cell (RBC) Count 5.22 mill/uL (4.70-6.10); White Blood Cell (WBC) Count 7.9 thou/uL (4.8-10.8)
[2017-06-20 06:35] LABS: Anion Gap 11 mmol/L (10-20); BUN (Urea Nitrogen) 23 mg/dL (8.9-20.6); Calc. Creatinine Clearance 173 mL/min (70-130); Carbon Dioxide 30 mmol/L (22-29); Chloride 103 mmol/L (98-107); Estimated GFR-MDRD 87; Glucose 102 mg/dL (70-105); Potassium 3.9 mmol/L (3.5-5.1); Sodium 140 mmol/L (136-145)
--- NOTE | 2017-06-20 08:01 | PDOC.FM ---
- Subjective Subjective: No acute events overnight. Pt reports his SOB has improved and orthopnea has improved as well. Denies cp, nvdc, LE pain. - Objective Vital Signs & Weight: Vital Signs (12 hours) Temp Pulse Resp BP Pulse Ox 06/20/17 04:00 97.6 F 95 17 124/76 97 06/20/17 00:00 96 F L 88 15 138/94 H 99 06/19/17 21:10 98.3 F 94 22 H Weight Admit Weight 123.831 kg Weight 119.6 kg I&O: 06/19/17 06/20/17 06/21/17 06:59 06:59 06:59 Intake Total 1340 1815 Output Total 3475 3500 Balance -2135 -1685 Result Diagrams: 06/20/17 06:11 06/20/17 06:11 <Mal Pickering - Last Filed: 06/20/17 07:59> - Objective Vital Signs & Weight: Vital Signs (12 hours) Temp Pulse Resp BP Pulse Ox 06/20/17 08:00 97.7 F 89 14 133/91 H 96 06/20/17 04:00 97.6 F 95 17 124/76 97 06/20/17 00:00 96 F L 88 15 138/94 H 99 Weight Admit Weight 273 lb Weight 263 lb 10.766 oz I&O: 06/19/17 06/20/17 06/21/17 06:59 06:59 06:59 Intake Total 1340 1815 Output Total 3475 3500 Balance -2135 -1685 Result Diagrams: 06/20/17 06:11 06/20/17 06:11 <Sudarshan Matias - Last Filed: 06/20/17 11:34> Phys Exam - Physical Examination Constitutional: NAD HEENT: PERRLA, sclera anicteric Neck: no nodes, full ROM Respiratory: no wheezing, no rales, no rhonchi, clear to auscultation bilateral Cardiovascular: RRR, no significant murmur, no rub Gastrointestinal: soft, non-tender, no distention, positive bowel sounds Musculoskeletal: pulses present, edema present 2+ pitting, improved from prior exam Neurological: non-focal, moves all 4 limbs Skin: no rash, cap refill <2 seconds <Mal Pickering - Last Filed: 06/20/17 07:59> Dx/Plan (1) HFrEF (heart failure with reduced ejection fraction) Code(s): I50.20 - UNSPECIFIED SYSTOLIC (CONGESTIVE) HEART FAILURE Status: Acute (2) Cellulitis of left lower extremity Code(s): L03.116 - CELLULITIS OF LEFT LOWER LIMB Status: Resolved (3) Diabetes mellitus type 2, controlled Code(s): E11.9 - TYPE 2 DIABETES MELLITUS WITHOUT COMPLICATIONS Status: Acute QualifierTitle: Diabetes mellitus watermelon harvesting supervisor insulin use: without residential use Diabetes mellitus complication status: with neurologic complications Diabetes mellitus complication detail: with polyneuropathy Qualified Code(s): E11.42 - Type 2 diabetes mellitus with diabetic polyneuropathy (4) Elevated brain natriuretic peptide (BNP) level Code(s): R79.89 - OTHER SPECIFIED ABNORMAL FINDINGS OF BLOOD CHEMISTRY Status : Acute (5) Hypertension Code(s): I10 - ESSENTIAL (PRIMARY) HYPERTENSION Status: Acute (6) Onychomycosis of multiple toenails with type 2 diabetes mellitus and peripheral neuropathy Code(s): E11.42 - TYPE 2 DIABETES MELLITUS WITH DIABETIC POLYNEUROPATHY; E11.69 - TYPE 2 DIABETES MELLITUS WITH OTHER SPECIFIED COMPLICATION; B35.1 - TINEA UNGUIUM Status: Acute (7) Microcytic anemia Code(s): D50.9 - IRON DEFICIENCY ANEMIA, UNSPECIFIED Status: Acute (8) Venous stasis dermatitis Code(s): I87.2 - VENOUS INSUFFICIENCY (CHRONIC) (PERIPHERAL) Status: Acute - Plan Plan: 1) HFrEF: Cont IV lasix and current medications. Monitor Is/Os. Plan will be cath after continued diurresis. Monitor elytes and replace prn. 2)Cellulitis of LLE: -likely 2/2 chronic venous stasis. Will dc abx today. Cont wound care. Pt erythema is persistent, although swelling has decreased. Will cont to monitor and hold abx. Cont wound care. 3) DMII: - cont home meds, accuchecks achs. Stable. Cont plan of care. No changes. 4) Elevated BNP: 2/2 #1. See above 5) HTN: Monitor, currently stable. Continue diuresis 6) Onychomycosis toenails 2/2 DMII: -will need OP management of DM foot callus. -stable. 7) Microcytic anemia: -cont Iron, stool softener and vit c -will need further OP workup. Hgb stable. 8)Venous stasis dermatitis: -see #2. Cont IV lasix. Monitor Is/Os. No abx at this time. <Mal Pickering - Last Filed: 06/20/17 07:59> Attending Addendum - Attending Addendum Date/Time: 06/20/17 1133 I personally evaluated the patient and discussed the management with resident. I agree with the History, Examination, Assessment and Plan documented above with any addition or exceptions noted below. Coronary angiography as per cardiology. Continue to treat CHF with fluid and salt restriction and diuresis. <Sudarshan Matias - Last Filed: 06/20/17 11:34>
[2017-06-20] MEDS: Famotidine 20 MG TAB PO SCH ×2 (08:06→21:46)
[2017-06-20] MEDS: Docusate 100 MG CAP PO SCH ×2 (08:06→21:46)
[2017-06-20] MEDS: Carvedilol 3.125 MG TAB PO SCH ×2 (08:06→16:33)
[2017-06-20] MEDS: Potassium Chloride 10 MEQ TAB PO SCH (08:06)
[2017-06-20] MEDS: Aspirin 81 mg Enteric Coated Tablet PO SCH (08:06)
[2017-06-20] MEDS: Ferrous Sulfate 325 MG TAB PO SCH ×2 (08:06→16:33)
[2017-06-20] MEDS: Ascorbic Acid 500 mg Chewable Tablet PO SCH ×2 (08:06→16:33)
[2017-06-20] MEDS: glipiZIDE 10 MG TAB PO SCH ×2 (08:06→21:46)
[2017-06-20] MEDS: Lisinopril 20 MG TAB PO SCH (08:06)
--- NOTE | 2017-06-20 17:54 | PDOC.CTH ---
<Kelin Carter - Last Filed: 06/20/17 17:52> Cardiology Progress Note - Subjective The pt seen and examined today. No overnight events. No cardiac complaints. - Objective Vital Signs Temp Pulse Resp BP BP Pulse Ox 06/20/17 16:35 98.3 F 97 14 126/97 H 98 06/20/17 12:00 97.6 F 95 14 133/90 98 06/20/17 08:00 97.7 F 89 14 133/91 H 96 Admit Weight 273 lb Weight 263 lb 10.766 oz 06/19/17 06/20/17 06/21/17 06:59 06:59 06:59 Intake Total 1340 1815 Output Total 3475 3500 Balance -2135 -1685 - Physical Examination General/Neuro: alert & oriented x3 Neck: no JVD present Lungs: CTA Heart: RRR Abdomen: soft Extremities: other: (2-3+ pitting BLE edema; dressing to LLE) - Telemetry Telemetry Rhythm: SR with BBB - Labs Result Diagrams: 06/20/17 06:11 06/20/17 06:11 Troponin/CKMB Troponin I Less than 0.010 ng/mL (< 0.028) 06/16/17 19:39 - Assessment/Plan 1. Acute on Chronic Systolic HF - Echo on 06/18/17 showed EF 10-15%, severe global hypokinesis, mod dilated LA, and mild MR and TR. His Breathing has been improved with Lasix 40mg IV BID, Lisinopril. Coreg and ASA 2. Severe Ischemic CMY - Plan for Cardiac cath on 06/21/17 for possible CAD. If normal CAD, D/c home with LifeVest and change Lisinopril to Entresto. 3. HTN - stable with current medications 4. DM type 2 - managed by PCP 5. Anemia - Hgb> 10 today; on Iron supplement 6. LLE Cellulitis - on IV antibiotics. Managed by PCP and wound care team 7. Current smoker - Smoking cessation education given to the pt MAR reviewed * The procedure and the risk of the cardiac cath were explained to the pt. The risks included, but not limited to, hemorrhage, infection, perforation, thrombus , CVA, [place], allergic reaction to Iodine, and possible . The pt voiced understanding and agreed to proceed the procedure possible tomorrow. Review of Systems - Review of Systems Constitutional: reports: no symptoms reported EENTM: reports: no symptoms reported Respiratory: reports: no symptoms reported Cardiac (ROS): reports: no symptoms reported ABD/GI: reports: no symptoms reported : reports: no symptoms reported Musculoskeletal: reports: no symptoms reported Skin: reports: no symptoms reported <Minoo Baxter - Last Filed: 06/20/17 19:28> Cardiology Progress Note - Objective Vital Signs Temp Pulse Resp BP BP Pulse Ox 06/20/17 16:35 98.3 F 97 14 126/97 H 98 06/20/17 12:00 97.6 F 95 14 133/90 98 06/20/17 08:00 97.7 F 89 14 133/91 H 96 Admit Weight 273 lb Weight 263 lb 10.766 oz 06/19/17 06/20/17 06/21/17 06:59 06:59 06:59 Intake Total 1340 1815 Output Total 3475 3500 Balance -2135 -1685 - Labs Result Diagrams: 06/20/17 06:11 06/20/17 06:11 Troponin/CKMB Troponin I Less than 0.010 ng/mL (< 0.028) 06/16/17 19:39 - Assessment/Plan Pt. seen and eval. by me. he is feeling better qday. He is still edematous but still good urine output.Plan for cardiac cath tomorrow.I agree with the A/P by the CUSTOMER CONTACT SPECIALIST.
[2017-06-21 05:08] LABS: #Basophils 0.1 thou/uL (0.0-0.2); #Eosinphils 0.5 thou/uL (0.0-0.7); #Lymphocytes 2.3 thou/uL (1.20-3.40); #Monocytes 0.6 thou/uL (0.11-0.59); #Neutrophils 5.4 thou/uL (1.40-6.50); %Basophils 0.7 % (0.0-1.0); %Eosinophils 5.8 % (0.0-10.0); %Lymphocytes 25.9 % (21.0-51.0); %Neutrophils 60.7 % (42.0-75.0); Hemoglobin 10.5 g/dL (14.0-18.0); Mean Corpuscular HGB CONC 30.1 g/dL (32.0-36.0); Mean Corpuscular Hemoglobin 20.7 pg (27.0-31.0); Mean Platelet Volume 9.4 fL (7.4-10.4); Platelet Count 281 thou/uL (130-400); RBC Distribution Width 16.2 % (11.5-14.5); Red Blood Cell (RBC) Count 5.05 mill/uL (4.70-6.10); White Blood Cell (WBC) Count 8.8 thou/uL (4.8-10.8)
[2017-06-21] MEDS: Ascorbic Acid 500 mg Chewable Tablet PO SCH ×2 (05:08→16:58)
[2017-06-21] MEDS: Carvedilol 3.125 MG TAB PO SCH ×2 (05:08→16:57)
[2017-06-21] MEDS: Ferrous Sulfate 325 MG TAB PO SCH ×2 (05:08→16:57)
[2017-06-21] MEDS: Lisinopril 20 MG TAB PO SCH (05:09)
[2017-06-21] MEDS: Famotidine 20 MG TAB PO SCH ×2 (05:09→22:11)
[2017-06-21] MEDS: Potassium Chloride 10 MEQ TAB PO SCH (05:09)
[2017-06-21] MEDS: Aspirin 81 mg Enteric Coated Tablet PO SCH (05:09)
[2017-06-21 05:14] LABS: Anion Gap 13 mmol/L (10-20); BUN (Urea Nitrogen) 24 mg/dL (8.9-20.6); Calc. Creatinine Clearance 178 mL/min (70-130); Calcium 8.9 mg/dL (7.8-10.44); Carbon Dioxide 28 mmol/L (22-29); Chloride 104 mmol/L (98-107); Estimated GFR-MDRD Greater than 90; Glucose 110 mg/dL (70-105); Potassium 3.6 mmol/L (3.5-5.1); Sodium 141 mmol/L (136-145)
--- NOTE | 2017-06-21 06:12 | PDOC.FM ---
Addendum entered and electronically signed by Vignesh Page MD 06/21/17 16:48 : Original Note: - Subjective Subjective: Pt doing well. Denies any acute events overnight. Denies any SOB or chest pain. Reports leg pain doing much better. Reports swelling in his legs have improved significantly. Denies any fever or chills. Been NPO. Plan for cath today. Addressed concerns regarding procedure. - Objective MAR Reviewed: Yes Vital Signs & Weight: Vital Signs (12 hours) Temp Pulse Resp BP BP Pulse Ox 06/21/17 05:09 132/82 06/21/17 04:10 97.6 F 91 16 133/88 96 06/20/17 20:15 98.0 F 98 16 97 06/20/17 20:10 98.0 F 98 16 133/86 97 Weight Admit Weight 123.831 kg Weight 116.3 kg I&O: 06/19/17 06/20/17 06/21/17 06:59 06:59 06:59 Intake Total 1340 1815 600 Output Total 3475 3500 3620 Balance -2016 -8917 -2771 Result Diagrams: 06/21/17 04:32 06/21/17 04:32 Radiology Reviewed by me: Yes (no new imaging today. ) <Vignesh Page - Last Filed: 06/21/17 08:21> - Objective Vital Signs & Weight: Vital Signs (12 hours) Temp Pulse Resp BP BP BP Pulse Ox 06/21/17 15:43 97.9 F 99 18 120/75 96 06/21/17 12:00 98 F 92 16 129/96 H 97 06/21/17 09:20 97.4 F L 89 19 100 06/21/17 09:19 97.4 F L 89 19 128/89 100 06/21/17 07:46 88 16 121/82 97 06/21/17 05:09 132/82 Weight Admit Weight 123.831 kg Weight 116.3 kg I&O: 06/20/17 06/21/17 06/22/17 06:59 06:59 06:59 Intake Total 1815 600 Output Total 3500 3620 Balance -7974 -3956 Result Diagrams: 06/21/17 04:32 06/21/17 04:32 <Quinn Baumann - Last Filed: 06/21/17 16:56> Phys Exam - Physical Examination Constitutional: NAD HEENT: PERRLA, moist MMs, sclera anicteric, TM's clear Neck: no nodes, supple, full ROM Respiratory: clear to auscultation bilateral mild crackles noted Cardiovascular: RRR, no significant murmur Gastrointestinal: soft, non-tender, positive bowel sounds mildly distended Musculoskeletal: edema present +2 pitting. Some erythema noted. No heat noted Neurological: normal sensation, moves all 4 limbs Lymphatic: no nodes Psychiatric: normal affect, A&O x 3 Skin: normal turgor, cap refill <2 seconds <Vingesh Page - Last Filed: 06/21/17 08:21> Dx/Plan (1) Diabetes mellitus type 2, controlled Code(s): E11.9 - TYPE 2 DIABETES MELLITUS WITHOUT COMPLICATIONS Status: Acute QualifierTitle: Diabetes mellitus assisted insulin use: without termite treater use Diabetes mellitus complication status: with neurologic complications Diabetes mellitus complication detail: with polyneuropathy Qualified Code(s): E11.42 - Type 2 diabetes mellitus with diabetic polyneuropathy (2) Elevated brain natriuretic peptide (BNP) level Code(s): R79.89 - OTHER SPECIFIED ABNORMAL FINDINGS OF BLOOD CHEMISTRY Status : Acute (3) HFrEF (heart failure with reduced ejection fraction) Code(s): I50.20 - UNSPECIFIED SYSTOLIC (CONGESTIVE) HEART FAILURE Status: Acute (4) Hypertension Code(s): I10 - ESSENTIAL (PRIMARY) HYPERTENSION Status: Acute (5) Microcytic anemia Code(s): D50.9 - IRON DEFICIENCY ANEMIA, UNSPECIFIED Status: Acute (6) Onychomycosis of multiple toenails with type 2 diabetes mellitus and peripheral neuropathy Code(s): E11.42 - TYPE 2 DIABETES MELLITUS WITH DIABETIC POLYNEUROPATHY; E11.69 - TYPE 2 DIABETES MELLITUS WITH OTHER SPECIFIED COMPLICATION; B35.1 - TINEA UNGUIUM Status: Acute (7) Venous stasis dermatitis Code(s): I87.2 - VENOUS INSUFFICIENCY (CHRONIC) (PERIPHERAL) Status: Acute - Plan Plan: 1) HFrEF: Cont IV lasix and current medications. Monitor Is/Os. Monitor elytes and replace prn. -Cardiology consulted- continue to follow recs -Plan for heart cath today. 2)Cellulitis of LLE: -likely 2/2 chronic venous stasis. -Levaquin and Clindamycin d/c yesterday Cont wound care. Pt erythema is persistent, although swelling has decreased. Will cont to monitor and hold abx. Cont wound care. 3) DMII: - cont home meds, accuchecks achs. Stable. Cont plan of care. No changes. 4) Elevated BNP: 2/2 #1. See above 5) HTN: Monitor, currently stable. Continue diuresis 6) Onychomycosis toenails 2/2 DMII: -will need OP management of DM foot callus. -stable. 7) Microcytic anemia: -cont Iron, stool softener and vit c -will need further OP workup. Hgb stable. 8)Venous stasis dermatitis: -see #2. Cont IV lasix. Monitor Is/Os. No abx at this mickey <Vignesh Page - Last Filed: 06/21/17 08:21> (1) Cellulitis of left lower extremity Code(s): L03.116 - CELLULITIS OF LEFT LOWER LIMB Status: Resolved (2) Elevated brain natriuretic peptide (BNP) level Code(s): R79.89 - OTHER SPECIFIED ABNORMAL FINDINGS OF BLOOD CHEMISTRY Status : Acute (3) Diabetes mellitus type 2, controlled Code(s): E11.9 - TYPE 2 DIABETES MELLITUS WITHOUT COMPLICATIONS Status: Acute Qualifiers: Diabetes mellitus assisted insulin use: without termite treater use Diabetes mellitus complication status: with neurologic complications Diabetes mellitus complication detail: with polyneuropathy Qualified Code(s): E11.42 - Type 2 diabetes mellitus with diabetic polyneuropathy (4) Hypertension Code(s): I10 - ESSENTIAL (PRIMARY) HYPERTENSION Status: Acute (5) Onychomycosis of multiple toenails with type 2 diabetes mellitus and peripheral neuropathy Code(s): E11.42 - TYPE 2 DIABETES MELLITUS WITH DIABETIC POLYNEUROPATHY; E11.69 - TYPE 2 DIABETES MELLITUS WITH OTHER SPECIFIED COMPLICATION; B35.1 - TINEA UNGUIUM Status: Acute (6) Microcytic anemia Code(s): D50.9 - IRON DEFICIENCY ANEMIA, UNSPECIFIED Status: Acute <Quinn Baumann - Last Filed: 06/21/17 16:56> Attending Addendum - Attending Addendum Date/Time: 06/21/17 0252 I personally evaluated the patient and discussed the management with Dr. Page. I agree with the History, Examination, Assessment and Plan documented above with any addition or exceptions noted below. Pt. w/o complaints post-cath. Unofficial report is no Coronary Disease with severely depressed EF, being evaluated for LifeVest placement. Pt. needs definitive plan for nail management or likely to remain nidus for continued infection. <Quinn Baumann - Last Filed: 06/21/17 16:56>
[2017-06-21] MEDS: Docusate 100 MG CAP PO SCH ×2 (09:46→22:09)
[2017-06-21] MEDS: glipiZIDE 10 MG TAB PO SCH ×2 (09:46→22:11)
[2017-06-21] MEDS: Furosemide 40 MG/4 ML VIAL SLOW IVP SCH ×2 (09:46→16:57)
[2017-06-21] MEDS ORDERED: Nitroglycerin 100MG/250ML BOT 250 ML ONE (11:01)
[2017-06-21] MEDS ORDERED: Heparin 10,000 UNITS/1 ML VIAL ONE (11:01)
[2017-06-21] MEDS ORDERED: Lidocaine 1% (PF) 30 ML VIAL ONE (11:01)
[2017-06-21] MEDS ORDERED: Verapamil 5 MG/2 ML VIAL ONE (11:01)
[2017-06-21] MEDS ORDERED: Acetaminophen/Codeine 30-300mg Tablet PO PRN ×2 (11:47)
[2017-06-21] MEDS ORDERED: traMADol HCl 50 MG TAB PO PRN (11:47)
[2017-06-21] MEDS ORDERED: Nitroglycerin 0.4 MG TAB (25 Tab Bottle) SL PRN (11:47)
[2017-06-21] MEDS ORDERED: Sodium Chloride 0.9% 200 ML IV SCH (11:47)
[2017-06-21] MEDS ORDERED: Iopamidol 370 76% 100 ML VIAL ONE (13:41)
[2017-06-21] MEDS ORDERED: Iopamidol 370 76% 50 ML VIAL FS ONE (13:41)
[2017-06-22 05:12] LABS: #Basophils 0.1 thou/uL (0.0-0.2); #Eosinphils 0.5 thou/uL (0.0-0.7); #Lymphocytes 2.1 thou/uL (1.20-3.40); #Monocytes 0.6 thou/uL (0.11-0.59); #Neutrophils 4.3 thou/uL (1.40-6.50); %Basophils 0.9 % (0.0-1.0); %Eosinophils 6.8 % (0.0-10.0); %Lymphocytes 27.5 % (21.0-51.0); %Monocytes 7.8 % (0.0-10.0); %Neutrophils 56.9 % (42.0-75.0); Hemoglobin 10.6 g/dL (14.0-18.0); Mean Corpuscular Hemoglobin 20.8 pg (27.0-31.0); Mean Corpuscular Volume 69.5 fl (80.0-94.0); Mean Platelet Volume 9.1 fL (7.4-10.4); Platelet Count 270 thou/uL (130-400); RBC Distribution Width 16.3 % (11.5-14.5); Red Blood Cell (RBC) Count 5.07 mill/uL (4.70-6.10); White Blood Cell (WBC) Count 7.5 thou/uL (4.8-10.8)
[2017-06-22 05:21] LABS: Anion Gap 10 mmol/L (10-20); BUN (Urea Nitrogen) 20 mg/dL (8.9-20.6); Calc. Creatinine Clearance 179 mL/min (70-130); Calcium 8.9 mg/dL (7.8-10.44); Carbon Dioxide 29 mmol/L (22-29); Chloride 105 mmol/L (98-107); Estimated GFR-MDRD Greater than 90; Glucose 111 mg/dL (70-105); Potassium 3.6 mmol/L (3.5-5.1); Sodium 140 mmol/L (136-145)
[2017-06-22] MEDS: Furosemide 40 MG/4 ML VIAL SLOW IVP SCH (05:45)
--- NOTE | 2017-06-22 06:46 | PDOC.FM ---
- Subjective Subjective: Pt reports doing well this morning. Reports legs continuing to improve. Denies any pain. Pt is up and wearing life vest. Asking whether he can go home today. Denies any acute events overnight. Denies any fever chills. Denies any SOB. Pt has met with heart failure clinic and cardiac rehab yesterday. - Objective MAR Reviewed: Yes Vital Signs & Weight: Vital Signs (12 hours) Temp Pulse Resp BP Pulse Ox 06/21/17 19:45 98.2 F 99 14 131/86 94 L Weight Admit Weight 123.831 kg Weight 116.074 kg I&O: 06/20/17 06/21/17 06/22/17 06:59 06:59 06:59 Intake Total 1815 600 500 Output Total 3500 3620 1500 Balance -3626 -7810 -1000 Result Diagrams: 06/22/17 04:29 06/22/17 04:29 Radiology Reviewed by me: Yes (no new imaging) <Vignesh Page - Last Filed: 06/22/17 08:11> - Objective Vital Signs & Weight: Vital Signs (12 hours) Temp Pulse Resp BP Pulse Ox 06/22/17 16:00 98.2 F 95 18 129/92 H 97 06/22/17 12:00 95 17 130/82 98 06/22/17 11:47 97 06/22/17 07:45 98.4 F 91 18 96 06/22/17 07:44 98.4 F 18 123/83 97 Weight Admit Weight 123.831 kg Weight 116.074 kg I&O: 06/21/17 06/22/17 06/23/17 06:59 06:59 06:59 Intake Total 600 980 Output Total 3620 2850 Balance -3794 -3921 Result Diagrams: 06/22/17 04:29 06/22/17 04:29 <Mallory Charlton - Last Filed: 06/22/17 18:01> Phys Exam - Physical Examination Constitutional: NAD HEENT: PERRLA, moist MMs Neck: no nodes, no JVD, supple, full ROM Respiratory: no wheezing, no rales, no rhonchi, clear to auscultation bilateral Cardiovascular: RRR, no significant murmur, no rub Gastrointestinal: soft, non-tender, no distention, positive bowel sounds Musculoskeletal: pulses present, edema present +1-2 pitting edema. Extremities red, No increased heat severe onchomycosis noted on feet bilaterally Neurological: non-focal, normal sensation, moves all 4 limbs Lymphatic: no nodes Psychiatric: normal affect Skin: cap refill <2 seconds <CamiloVignesh - Last Filed: 06/22/17 08:11> Dx/Plan (1) Diabetes mellitus type 2, controlled Code(s): E11.9 - TYPE 2 DIABETES MELLITUS WITHOUT COMPLICATIONS Status: Acute QualifierTitle: Diabetes mellitus termite control service representative insulin use: without termite control service representative use Diabetes mellitus complication status: with neurologic complications Diabetes mellitus complication detail: with polyneuropathy Qualified Code(s): E11.42 - Type 2 diabetes mellitus with diabetic polyneuropathy (2) Elevated brain natriuretic peptide (BNP) level Code(s): R79.89 - OTHER SPECIFIED ABNORMAL FINDINGS OF BLOOD CHEMISTRY Status : Acute (3) HFrEF (heart failure with reduced ejection fraction) Code(s): I50.20 - UNSPECIFIED SYSTOLIC (CONGESTIVE) HEART FAILURE Status: Acute (4) Hypertension Code(s): I10 - ESSENTIAL (PRIMARY) HYPERTENSION Status: Acute (5) Microcytic anemia Code(s): D50.9 - IRON DEFICIENCY ANEMIA, UNSPECIFIED Status: Acute (6) Onychomycosis of multiple toenails with type 2 diabetes mellitus and peripheral neuropathy Code(s): E11.42 - TYPE 2 DIABETES MELLITUS WITH DIABETIC POLYNEUROPATHY; E11.69 - TYPE 2 DIABETES MELLITUS WITH OTHER SPECIFIED COMPLICATION; B35.1 - TINEA UNGUIUM Status: Acute (7) Venous stasis dermatitis Code(s): I87.2 - VENOUS INSUFFICIENCY (CHRONIC) (PERIPHERAL) Status: Acute - Plan Plan: 1) HFrEF: Cont IV lasix and current medications. Monitor Is/Os. Monitor elytes and replace prn. -Heart failure clinic and cardiac rehab consulted- set up for outpatient management. -Cardiology consulted- continue to follow recs -heart cath yesterday did not show any blockage. 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 2)Cellulitis of LLE: -likely 2/2 chronic venous stasis. -Levaquin and Clindamycin d/c 06/21 Cont wound care. Pt erythema is persistent, although swelling has decreased. Will cont to monitor and hold abx. Cont wound care. 3) DMII: - cont home meds, accuchecks achs. Stable. Cont plan of care. No changes. 4) Elevated BNP: 2/2 #1. See above 5) HTN: Monitor, currently stable. Continue diuresis 6) Onychomycosis toenails 2/2 DMII: -will need OP management of DM foot callus. -Possibly see if podiatry will see him in hospital -stable. 7) Microcytic anemia: -cont Iron, stool softener and vit c -will need further OP workup. Hgb stable. 8)Venous stasis dermatitis: -see #2. Cont IV lasix. Monitor Is/Os. No abx at this time <Vignesh Page - Last Filed: 06/22/17 08:11> Attending Addendum - Attending Addendum Date/Time: 06/22/17 1800 I personally evaluated the patient and discussed the management with Dr. Page. I agree with the History, Examination, Assessment and Plan documented above with any addition or exceptions noted below. Patient has been set up with a life vest. He has info for heart failure clinic. Will try to obtain restrictions as it pertains to work from cardiology. Anticipate discharge soon. <Mallory Charlton - Last Filed: 06/22/17 18:01>
[2017-06-22] MEDS: Ferrous Sulfate 325 MG TAB PO SCH ×2 (08:18→16:57)
[2017-06-22] MEDS: Lisinopril 20 MG TAB PO SCH (08:18)
[2017-06-22] MEDS: Ascorbic Acid 500 mg Chewable Tablet PO SCH ×2 (08:18→16:57)
[2017-06-22] MEDS: Potassium Chloride 10 MEQ TAB PO SCH (08:18)
[2017-06-22] MEDS: glipiZIDE 10 MG TAB PO SCH (08:19)
[2017-06-22] MEDS: Docusate 100 MG CAP PO SCH (08:19)
[2017-06-22] MEDS: Carvedilol 3.125 MG TAB PO SCH ×2 (08:19→16:57)
[2017-06-22] MEDS: Aspirin 81 mg Enteric Coated Tablet PO SCH (08:19)
[2017-06-22 10:15] LABS: Hemoglobin A1c 7.1 % (4.0-6.0)
--- NOTE | 2017-06-22 12:53 | PDOC.CTH ---
Cardiology Progress Note - Subjective The pt seen and examined. No overnight events. No cardiac complaints. He stated he will change his life style for Dx of CHF. - Objective Vital Signs Temp Pulse Resp BP BP Pulse Ox 06/22/17 11:47 97 06/22/17 07:45 98.4 F 91 18 96 06/22/17 07:44 98.4 F 18 123/83 97 06/22/17 04:00 97.8 F 91 18 130/86 98 Admit Weight 273 lb Weight 255 lb 14.4 oz 06/21/17 06/22/17 06/23/17 06:59 06:59 06:59 Intake Total 600 980 Output Total 3620 2850 Balance -3020 -1870 - Physical Examination General/Neuro: alert & oriented x3 Neck: no JVD present Lungs: CTA Heart: RRR Abdomen: soft Extremities: other: (No edema; Dressing to LLE) - Telemetry Telemetry Rhythm: SR - Labs Result Diagrams: 06/22/17 04:29 06/22/17 04:29 Troponin/CKMB Troponin I Less than 0.010 ng/mL (< 0.028) 06/16/17 19:39 - Assessment/Plan 1. Acute on Chronic Systolic HF - Echo on 06/18/17 showed EF 10-15%, severe global hypokinesis, mod dilated LA, and mild MR and TR. Cardiac cath on showed EF 10-15% with normal coronary arteries. 2. Severe Ischemic CMY - D/c home with LifeVest and Echo within 1 month. If no EF change, then change Lisinopril to Entresto. 3. HTN - stable with current medications 4. DM type 2 - managed by PCP 5. Anemia - Hgb> 10 today; on Iron supplement 6. LLE Cellulitis - On antibiotics. Managed by PCP and wound care team 7. Current smoker - Smoking cessation education given to the pt MAR reviewed * From cardiac standpoint, the pt stable to d/c home. The pt will f/u with Dr Baxter' office within 2-4 wks then another Echo within 1 month and change Lisinopril to Entresto if no EF improvement. * The pt also will f/u with CHF clinic. * [facility] med for CHF - Lisinopril 20mg qd, Coreg 3.125mg BID; ASA 81mg qd, Lasix 40mg BID, Review of Systems - Review of Systems Constitutional: reports: no symptoms reported EENTM: reports: no symptoms reported Respiratory: reports: no symptoms reported Cardiac (ROS): reports: no symptoms reported ABD/GI: reports: no symptoms reported : reports: no symptoms reported Musculoskeletal: reports: no symptoms reported Skin: reports: no symptoms reported
[2017-06-22] MEDS ORDERED: Furosemide 20 MG TAB PO SCH (14:00)
[2017-06-22] MEDS ORDERED: Furosemide 40 MG TAB PO SCH (14:00)
[2017-06-22 16:56] VITALS: BP 129/92; TEMP 98.2
[2017-06-22] MEDS: Famotidine 20 MG TAB PO SCH (16:56)
== END 2017-06-22 18:44 | disposition home or self-care (01) | DRG 287 ==
LOC: ERS 14:41 → T4-B 16:50 → 2NO 06-18 13:33
PROVIDERS: ADMIT Student in an Organized Health Care Education/Training Program; ATTEND Student in an Organized Health Care Education/Training Program
PROC: 4A023N7 Measurement of Cardiac Sampling and Pressure, Left Heart, Percutaneous Approach (ICD-10-PCS; principal; 2017-06-21)
PROC: B2111ZZ Fluoroscopy of Multiple Coronary Arteries using Low Osmolar Contrast (ICD-10-PCS; 2017-06-21)
DX: I11.0 Hypertensive heart disease with heart failure (principal); E11.42 Type 2 diabetes mellitus with diabetic polyneuropathy; E11.621 Type 2 diabetes mellitus with foot ulcer; E11.65 Type 2 diabetes mellitus with hyperglycemia; D64.9 Anemia, unspecified; B35.1 Tinea unguium; L03.116 Cellulitis of left lower limb; D50.9 Iron deficiency anemia, unspecified; I50.23 Acute on chronic systolic (congestive) heart failure; I25.5 Ischemic cardiomyopathy; I87.2 Venous insufficiency (chronic) (peripheral); L97.529 Non-pressure chronic ulcer of other part of left foot with unspecified severity; F17.290 Nicotine dependence, other tobacco product, uncomplicated; E66.9 Obesity, unspecified; Z68.34 Body mass index [BMI] 34.0-34.9, adult; Z79.84 Long term (current) use of oral hypoglycemic drugs; Z79.82 Long term (current) use of aspirin
CPT/HCPCS: 36415; 36416; 80048; 82728; 83036; 83540; 83550; 85025; 93306; 93458; 93798; 96365; A4216; C1769; J1644; J1940; J1956; J2001; J3370; J3490

== ENCOUNTER 2023-03-19 21:45 | Inpatient (IN) | payer SELFPAY ==
[2023-03-19] MEDS ORDERED: Acetaminophen 325 MG TAB PO PRN (22:40)
[2023-03-19] MEDS ORDERED: Ondansetron PF 4 MG/2 ML Vial IVP PRN (22:40)
[2023-03-19] MEDS ORDERED: Cefepime 2 GM in Sodium Chloride 0.9% 100 ML IVPB SCH (23:00)
[2023-03-20 00:39] LABS: Vancomycin, Trough 33.4 ug/mL
[2023-03-20] MEDS: metroNIDAZOLE 500 MG TAB PO SCH ×3 (01:09→17:21)
[2023-03-20 04:54] LABS: #Eosinphils 0.1 thou/uL (0.0-0.7); #Monocytes 0.7 thou/uL (0.11-0.59); #Neutrophils 12.6 thou/uL (1.40-6.50); %Basophils 0.2 % (0.0-1.0); %Eosinophils 0.8 % (0.0-10.0); %Lymphocytes 9.3 % (21.0-51.0); %Monocytes 4.6 % (0.0-10.0); %Neutrophils 84.5 % (42.0-75.0); Hematocrit 30.7 % (42.0-52.0); Hemoglobin 8.4 g/dL (14.0-18.0); Mean Corpuscular HGB CONC 27.4 g/dL (32.0-36.0); Mean Corpuscular Hemoglobin 18.3 pg (27.0-31.0); Mean Platelet Volume 10.6 fL (7.4-10.4); Platelet Count 237 10x3/uL (130-400); RBC Distribution Width 19.9 % (11.5-14.5); Red Blood Cell (RBC) Count 4.58 mill/uL (4.70-6.10); White Blood Cell (WBC) Count 14.9 10x3/uL (4.8-10.8)
[2023-03-20 05:14] LABS: Anion Gap 18 mmol/L (10-20); BUN (Urea Nitrogen) 46 mg/dL (8.9-20.6); Calc. Creatinine Clearance 55 mL/min (70-130); Calcium 7.9 mg/dL (7.8-10.44); Carbon Dioxide 25 mmol/L (22-29); Chloride 92 mmol/L (98-107); Estimated GFR 30; Glucose 214 mg/dL (70-105); Potassium 3.2 mmol/L (3.5-5.1); Sodium 132 mmol/L (136-145)
[2023-03-20 05:39] LABS: Burr Cells SLIGHT = 2-5 cells HPF (0-1); CellaVision Operator ID LAB.NR; Elliptocytes SLIGHT = 2-5 cells HPF (0-1); Hypochromia MODERATE=16-30 cells HPF (0-5); Macrocytosis SLIGHT = 6-15 cells HPF (0-5); Platelet Adequacy Comment Platelets Normal; Polychromasia SLIGHT = 2-3 cells HPF (0-2); Smudge Cells 12.1 %
[2023-03-20] MEDS ORDERED: Enoxaparin 40 MG (0.4 mL) SYRINGE SC SCH (09:00)
[2023-03-20] MEDS ORDERED: metroNIDAZOLE 500 MG TAB PO SCH (09:00)
[2023-03-20] MEDS ORDERED: Glucagon 1 MG/ML KIT IM PRN (09:33)
[2023-03-20] MEDS ORDERED: Dextrose 5% in Water 1,000 ML IV PRN (09:33)
[2023-03-20] MEDS ORDERED: Dextrose 50% Abboject 50 ML SYRINGE SLOW IVP PRN (09:33)
[2023-03-20] MEDS ORDERED: HYDROcodone/Acetaminophen 5/325 mg Tablet PO PRN (09:35)
[2023-03-20] MEDS ORDERED: Sodium Chloride 0.9% 1,000 ML IV SCH (09:45)
[2023-03-20] MEDS ORDERED: Potassium Chloride 20 MEQ TAB PO SCH (09:45)
[2023-03-20] MEDS ORDERED: Furosemide 40 MG (4 mL) VIAL SLOW IVP SCH (10:15)
[2023-03-20] MEDS: Cefepime 1 GM in Sodium Chloride 0.9% 100 ML IVPB SCH (10:39)
[2023-03-20] MEDS: Albumin 25% 25 GM (100 mL) BOT IVPB SCH ×2 (11:27→17:21)
[2023-03-20] MEDS ORDERED: Vancomycin (BATCH) 1.5 GM in Premix 1 BAG IVPB SCH (13:00)
[2023-03-20 13:13] LABS: Vancomycin, Random 30.8 ug/mL (See Comment)
[2023-03-20] MEDS: Heparin 5,000 UNITS/ML VIAL SC SCH ×2 (17:18→21:28)
[2023-03-20] MEDS: glipiZIDE 10 MG TAB PO SCH (17:18)
[2023-03-20] MEDS: Carvedilol 3.125 MG TAB PO SCH (17:22)
[2023-03-20] MEDS: Insulin Glargine 30 UNITS/0.3 ML VIAL SC SCH (21:29)
[2023-03-20] MEDS: Insulin Regular 300 UNITS/3 ML VIAL SC PRN (21:32)
[2023-03-21] MEDS: Albumin 25% 25 GM (100 mL) BOT IVPB SCH ×2 (00:10→05:15)
[2023-03-21] MEDS: metroNIDAZOLE 500 MG TAB PO SCH ×3 (00:10→17:09)
[2023-03-21] MEDS: Cefepime 1 GM in Sodium Chloride 0.9% 100 ML IVPB SCH ×2 (00:10→10:13)
[2023-03-21 01:18] LABS: Vancomycin, Random 15.6 ug/mL (See Comment)
[2023-03-21] MEDS: Vancomycin (BATCH) 1.5 GM in Premix 1 BAG IVPB SCH (02:53)
[2023-03-21] MEDS: Furosemide 40 MG (4 mL) VIAL SLOW IVP SCH ×2 (05:15→14:54)
[2023-03-21] MEDS: Insulin Regular 300 UNITS/3 ML VIAL SC PRN ×3 (05:57→19:09)
[2023-03-21 06:57] LABS: #Basophils 0.1 thou/uL (0.0-0.2); #Eosinphils 0.3 thou/uL (0.0-0.7); #Monocytes 0.4 thou/uL (0.11-0.59); #Neutrophils 5.8 thou/uL (1.40-6.50); %Basophils 0.6 % (0.0-1.0); %Eosinophils 3.2 % (0.0-10.0); %Lymphocytes 15.8 % (21.0-51.0); %Monocytes 5.6 % (0.0-10.0); %Neutrophils 74.2 % (42.0-75.0); Hematocrit 30.5 % (42.0-52.0); Hemoglobin 8.2 g/dL (14.0-18.0); Mean Corpuscular HGB CONC 26.9 g/dL (32.0-36.0); Mean Corpuscular Hemoglobin 18.7 pg (27.0-31.0); Mean Corpuscular Volume 69.5 fl (78.0-98.0); Mean Platelet Volume 10.3 fL (7.4-10.4); Platelet Count 227 10x3/uL (130-400); RBC Distribution Width 20.6 % (11.5-14.5); Red Blood Cell (RBC) Count 4.39 mill/uL (4.70-6.10); White Blood Cell (WBC) Count 7.9 10x3/uL (4.8-10.8)
[2023-03-21 07:21] LABS: ALT (SGPT) 23 U/L (8-55); AST (SGOT) 42 U/L (5-34); Albumin 3.2 g/dL (3.5-5.0); Alkaline Phosphatase 122 U/L (40-110); Anion Gap 13 mmol/L (10-20); BUN (Urea Nitrogen) 48 mg/dL (8.9-20.6); Bilirubin, Total 2.4 mg/dL (0.2-1.2); Calc. Creatinine Clearance 80 mL/min (70-130); Calcium 8.2 mg/dL (7.8-10.44); Carbon Dioxide 27 mmol/L (22-29); Chloride 97 mmol/L (98-107); Estimated GFR 47; Globulin 4.8 g/dL (2.4-3.5); Glucose 181 mg/dL (70-105); Magnesium 2.4 mg/dL (1.6-2.6); Potassium 3.2 mmol/L (3.5-5.1); Sodium 134 mmol/L (136-145)
[2023-03-21] MEDS: Carvedilol 3.125 MG TAB PO SCH ×2 (10:12→17:09)
[2023-03-21] MEDS: glipiZIDE 10 MG TAB PO SCH ×2 (10:12→17:09)
[2023-03-21] MEDS: Heparin 5,000 UNITS/ML VIAL SC SCH ×3 (10:12→21:32)
[2023-03-21] MEDS ORDERED: Potassium Chloride 20 MEQ TAB PO SCH (10:30)
[2023-03-21] MEDS ORDERED: Melatonin 3 MG TAB PO PRN (18:36)
[2023-03-21] MEDS: Insulin Glargine 30 UNITS/0.3 ML VIAL SC SCH (21:33)
[2023-03-22] MEDS: Cefepime 1 GM in Sodium Chloride 0.9% 100 ML IVPB SCH ×2 (00:17→10:39)
[2023-03-22] MEDS: metroNIDAZOLE 500 MG TAB PO SCH ×3 (01:02→18:30)
[2023-03-22] MEDS: Vancomycin (BATCH) 1.5 GM in Premix 1 BAG IVPB SCH (01:20)
[2023-03-22 04:45] LABS: #Eosinphils 0.3 thou/uL (0.0-0.7); #Monocytes 0.5 thou/uL (0.11-0.59); #Neutrophils 5.5 thou/uL (1.40-6.50); %Basophils 0.5 % (0.0-1.0); %Eosinophils 3.7 % (0.0-10.0); %Lymphocytes 17.9 % (21.0-51.0); %Monocytes 5.9 % (0.0-10.0); %Neutrophils 71.1 % (42.0-75.0); Hematocrit 32.6 % (42.0-52.0); Hemoglobin 8.8 g/dL (14.0-18.0); Mean Corpuscular Hemoglobin 18.7 pg (27.0-31.0); Mean Corpuscular Volume 69.2 fl (78.0-98.0); Mean Platelet Volume 10.3 fL (7.4-10.4); Platelet Count 253 10x3/uL (130-400); RBC Distribution Width 20.8 % (11.5-14.5); Red Blood Cell (RBC) Count 4.71 mill/uL (4.70-6.10); White Blood Cell (WBC) Count 7.7 10x3/uL (4.8-10.8)
[2023-03-22 05:04] LABS: Anion Gap 14 mmol/L (10-20); BUN (Urea Nitrogen) 41 mg/dL (8.9-20.6); Calc. Creatinine Clearance 104 mL/min (70-130); Carbon Dioxide 27 mmol/L (22-29); Chloride 100 mmol/L (98-107); Estimated GFR 64; Glucose 105 mg/dL (70-105); Potassium 3.4 mmol/L (3.5-5.1); Sodium 138 mmol/L (136-145)
[2023-03-22] MEDS: Furosemide 40 MG (4 mL) VIAL SLOW IVP SCH ×2 (06:33→13:58)
[2023-03-22] MEDS ORDERED: Potassium Chloride 20 MEQ TAB PO SCH (08:00)
[2023-03-22] MEDS: Carvedilol 3.125 MG TAB PO SCH ×2 (08:13→18:30)
[2023-03-22] MEDS: glipiZIDE 10 MG TAB PO SCH ×2 (08:13→16:20)
[2023-03-22] MEDS ORDERED: FLU VACC QS2023-24(6MOS UP)/PF 60 MCG/0.5 ML SYRINGE IM ONE (09:00)
[2023-03-22] MEDS ORDERED: Potassium Bicarbonate/Cit Ac 20 MEQ TAB PO SCH (10:15)
[2023-03-22] MEDS: Heparin 5,000 UNITS/ML VIAL SC SCH ×3 (10:39→21:52)
[2023-03-22] MEDS ORDERED: Vancomycin 1 GM/200 ML (FROZEN) BAG ONE (13:44)
[2023-03-22] MEDS: Vancomycin 1 GM in Premix 1 BAG IVPB SCH (13:57)
[2023-03-22] MEDS: Insulin Regular 300 UNITS/3 ML VIAL SC PRN (18:31)
[2023-03-22] MEDS: Insulin Glargine 30 UNITS/0.3 ML VIAL SC SCH (21:52)
[2023-03-22] MEDS: Cefepime 2 GM in Sodium Chloride 0.9% 100 ML IVPB SCH (23:59)
[2023-03-23] MEDS: Vancomycin 1 GM in Premix 1 BAG IVPB SCH ×2 (00:35→14:22)
[2023-03-23] MEDS: Insulin Regular 300 UNITS/3 ML VIAL SC PRN ×4 (05:27→21:05)
[2023-03-23] MEDS: Furosemide 40 MG (4 mL) VIAL SLOW IVP SCH ×2 (05:27→14:22)
[2023-03-23 06:26] LABS: #Basophils 0.1 thou/uL (0.0-0.2); #Eosinphils 0.3 thou/uL (0.0-0.7); #Monocytes 0.5 thou/uL (0.11-0.59); #Neutrophils 4.5 thou/uL (1.40-6.50); %Basophils 0.7 % (0.0-1.0); %Eosinophils 4.2 % (0.0-10.0); %Lymphocytes 20.9 % (21.0-51.0); %Monocytes 7.1 % (0.0-10.0); %Neutrophils 66.1 % (42.0-75.0); Hematocrit 32.6 % (42.0-52.0); Hemoglobin 8.9 g/dL (14.0-18.0); Mean Corpuscular HGB CONC 27.3 g/dL (32.0-36.0); Mean Corpuscular Hemoglobin 18.9 pg (27.0-31.0); Mean Corpuscular Volume 69.2 fl (78.0-98.0); Mean Platelet Volume 10.2 fL (7.4-10.4); Platelet Count 263 10x3/uL (130-400); RBC Distribution Width 21.1 % (11.5-14.5); Red Blood Cell (RBC) Count 4.71 mill/uL (4.70-6.10); White Blood Cell (WBC) Count 6.7 10x3/uL (4.8-10.8)
[2023-03-23 06:53] LABS: ALT (SGPT) 26 U/L (8-55); AST (SGOT) 45 U/L (5-34); Albumin 2.9 g/dL (3.5-5.0); Alkaline Phosphatase 116 U/L (40-110); Anion Gap 13 mmol/L (10-20); BUN (Urea Nitrogen) 42 mg/dL (8.9-20.6); Bilirubin, Total 2.7 mg/dL (0.2-1.2); Calc. Creatinine Clearance 92 mL/min (70-130); Calcium 8.3 mg/dL (7.8-10.44); Carbon Dioxide 27 mmol/L (22-29); Chloride 98 mmol/L (98-107); Estimated GFR 54; Globulin 5.1 g/dL (2.4-3.5); Glucose 181 mg/dL (70-105); Magnesium 2.3 mg/dL (1.6-2.6); Potassium 3.4 mmol/L (3.5-5.1); Sodium 135 mmol/L (136-145)
[2023-03-23] MEDS ORDERED: Potassium Bicarbonate/Cit Ac 20 MEQ TAB PO SCH (08:00)
[2023-03-23] MEDS: Heparin 5,000 UNITS/ML VIAL SC SCH ×3 (08:57→21:05)
[2023-03-23] MEDS: metroNIDAZOLE 500 MG TAB PO SCH ×3 (08:57→16:33)
[2023-03-23] MEDS: glipiZIDE 10 MG TAB PO SCH ×2 (08:57→16:33)
[2023-03-23] MEDS: Carvedilol 3.125 MG TAB PO SCH ×2 (08:57→16:33)
[2023-03-23] MEDS: Cefepime 2 GM in Sodium Chloride 0.9% 100 ML IVPB SCH ×2 (11:03→23:59)
[2023-03-23] MEDS: Potassium Bicarbonate/Cit Ac 20 MEQ TAB PO SCH (16:37)
[2023-03-23] MEDS: Insulin Glargine 30 UNITS/0.3 ML VIAL SC SCH (21:05)
[2023-03-24 00:39] LABS: Vancomycin, Trough 22.8 ug/mL
[2023-03-24] MEDS: Vancomycin 1 GM in Premix 1 BAG IVPB SCH ×2 (01:22)
[2023-03-24] MEDS: Furosemide 40 MG (4 mL) VIAL SLOW IVP SCH ×2 (03:11→14:19)
[2023-03-24] MEDS: Vancomycin HCl 750 MG in Sodium Chloride 0.9% 250 ML 250 ML IVPB SCH ×2 (03:12→14:19)
[2023-03-24 05:58] LABS: #Eosinphils 0.3 thou/uL (0.0-0.7); #Monocytes 0.6 thou/uL (0.11-0.59); %Basophils 0.5 % (0.0-1.0); %Eosinophils 3.9 % (0.0-10.0); %Lymphocytes 19.3 % (21.0-51.0); %Monocytes 8.2 % (0.0-10.0); %Neutrophils 67.3 % (42.0-75.0); Hematocrit 33.3 % (42.0-52.0); Hemoglobin 8.9 g/dL (14.0-18.0); Mean Corpuscular HGB CONC 26.7 g/dL (32.0-36.0); Mean Corpuscular Hemoglobin 18.4 pg (27.0-31.0); Mean Corpuscular Volume 68.9 fl (78.0-98.0); Mean Platelet Volume 10.2 fL (7.4-10.4); Platelet Count 260 10x3/uL (130-400); RBC Distribution Width 21.4 % (11.5-14.5); Red Blood Cell (RBC) Count 4.83 mill/uL (4.70-6.10); White Blood Cell (WBC) Count 7.4 10x3/uL (4.8-10.8)
[2023-03-24 06:24] LABS: ALT (SGPT) 25 U/L (8-55); AST (SGOT) 38 U/L (5-34); Albumin 2.7 g/dL (3.5-5.0); Alkaline Phosphatase 111 U/L (40-110); Anion Gap 14 mmol/L (10-20); BUN (Urea Nitrogen) 42 mg/dL (8.9-20.6); Bilirubin, Total 2.6 mg/dL (0.2-1.2); Calc. Creatinine Clearance 100 mL/min (70-130); Calcium 8.5 mg/dL (7.8-10.44); Carbon Dioxide 26 mmol/L (22-29); Chloride 101 mmol/L (98-107); Estimated GFR 59; Globulin 5.4 g/dL (2.4-3.5); Glucose 219 mg/dL (70-105); Magnesium 2.1 mg/dL (1.6-2.6); Potassium 3.7 mmol/L (3.5-5.1); Protein, Total 8.1 g/dL (6.0-8.3); Sodium 137 mmol/L (136-145)
[2023-03-24] MEDS: Insulin Regular 300 UNITS/3 ML VIAL SC PRN ×3 (06:28→21:14)
[2023-03-24] MEDS: metroNIDAZOLE 500 MG TAB PO SCH ×2 (09:41)
[2023-03-24] MEDS: Carvedilol 3.125 MG TAB PO SCH ×2 (09:41→16:48)
[2023-03-24] MEDS: Heparin 5,000 UNITS/ML VIAL SC SCH ×3 (09:41→21:14)
[2023-03-24] MEDS: Potassium Bicarbonate/Cit Ac 20 MEQ TAB PO SCH ×2 (09:41→16:48)
[2023-03-24] MEDS: glipiZIDE 10 MG TAB PO SCH ×2 (09:41→16:48)
[2023-03-24] MEDS: Cefepime 2 GM in Sodium Chloride 0.9% 100 ML IVPB SCH (10:12)
[2023-03-24] MEDS ORDERED: Sulfameth/Trimethoprim DS 800-160mg TAB PO SCH (15:15)
[2023-03-24] MEDS: Sulfameth/Trimethoprim DS 800-160mg TAB PO SCH (21:14)
[2023-03-24] MEDS: Insulin Glargine 30 UNITS/0.3 ML VIAL SC SCH (21:14)
[2023-03-25] MEDS: Vancomycin HCl 750 MG in Sodium Chloride 0.9% 250 ML 250 ML IVPB SCH (02:24)
[2023-03-25 04:39] LABS: #Eosinphils 0.3 thou/uL (0.0-0.7); #Monocytes 0.6 thou/uL (0.11-0.59); #Neutrophils 6.7 thou/uL (1.40-6.50); %Basophils 0.4 % (0.0-1.0); %Eosinophils 3.5 % (0.0-10.0); %Lymphocytes 15.9 % (21.0-51.0); %Monocytes 6.8 % (0.0-10.0); %Neutrophils 72.6 % (42.0-75.0); Hematocrit 33.5 % (42.0-52.0); Hemoglobin 8.8 g/dL (14.0-18.0); Mean Corpuscular HGB CONC 26.3 g/dL (32.0-36.0); Mean Corpuscular Hemoglobin 18.1 pg (27.0-31.0); Mean Corpuscular Volume 68.8 fl (78.0-98.0); Platelet Count 242 10x3/uL (130-400); RBC Distribution Width 21.9 % (11.5-14.5); Red Blood Cell (RBC) Count 4.87 mill/uL (4.70-6.10); White Blood Cell (WBC) Count 9.2 10x3/uL (4.8-10.8)
[2023-03-25] MEDS: Furosemide 40 MG (4 mL) VIAL SLOW IVP SCH (04:43)
[2023-03-25 05:10] LABS: ALT (SGPT) 22 U/L (8-55); AST (SGOT) 34 U/L (5-34); Albumin 2.9 g/dL (3.5-5.0); Alkaline Phosphatase 103 U/L (40-110); Anion Gap 15 mmol/L (10-20); BUN (Urea Nitrogen) 47 mg/dL (8.9-20.6); Bilirubin, Total 2.8 mg/dL (0.2-1.2); Calc. Creatinine Clearance 84 mL/min (70-130); Calcium 8.5 mg/dL (7.8-10.44); Carbon Dioxide 25 mmol/L (22-29); Chloride 100 mmol/L (98-107); Estimated GFR 48; Globulin 5.4 g/dL (2.4-3.5); Glucose 171 mg/dL (70-105); Magnesium 2.3 mg/dL (1.6-2.6); Potassium 3.7 mmol/L (3.5-5.1); Protein, Total 8.3 g/dL (6.0-8.3); Sodium 136 mmol/L (136-145)
[2023-03-25] MEDS: Potassium Bicarbonate/Cit Ac 20 MEQ TAB PO SCH ×2 (09:53→17:56)
[2023-03-25] MEDS: Sulfameth/Trimethoprim DS 800-160mg TAB PO SCH ×3 (09:56→20:38)
[2023-03-25] MEDS: glipiZIDE 10 MG TAB PO SCH ×2 (09:57→17:57)
[2023-03-25] MEDS: Heparin 5,000 UNITS/ML VIAL SC SCH ×3 (09:57→20:38)
[2023-03-25] MEDS: Carvedilol 3.125 MG TAB PO SCH ×2 (09:59→18:43)
[2023-03-25] MEDS ORDERED: Metolazone 2.5 MG TAB PO SCH (11:00)
[2023-03-25] MEDS ORDERED: Furosemide 40 MG (4 mL) VIAL SLOW IVP SCH ×2 (11:00→15:00)
[2023-03-25] MEDS: Insulin Regular 300 UNITS/3 ML VIAL SC PRN (12:27)
[2023-03-25 13:19] LABS: Vancomycin, Trough 22.2 ug/mL
[2023-03-25] MEDS ORDERED: Vancomycin HCl 750 MG in Sodium Chloride 0.9% 250 ML 250 ML IVPB SCH (13:45)
[2023-03-25] MEDS: Vancomycin (BATCH) 1.5 GM in Premix 1 BAG IVPB SCH (18:43)
[2023-03-25] MEDS: Insulin Glargine 30 UNITS/0.3 ML VIAL SC SCH (20:36)
[2023-03-26 04:43] LABS: #Basophils 0.1 thou/uL (0.0-0.2); #Eosinphils 0.3 thou/uL (0.0-0.7); #Monocytes 0.7 thou/uL (0.11-0.59); #Neutrophils 8.4 thou/uL (1.40-6.50); %Basophils 0.4 % (0.0-1.0); %Eosinophils 2.3 % (0.0-10.0); %Lymphocytes 16.2 % (21.0-51.0); %Monocytes 5.9 % (0.0-10.0); %Neutrophils 74.5 % (42.0-75.0); Hemoglobin 8.7 g/dL (14.0-18.0); Mean Corpuscular HGB CONC 27.2 g/dL (32.0-36.0); Mean Corpuscular Hemoglobin 18.2 pg (27.0-31.0); Mean Corpuscular Volume 66.8 fl (78.0-98.0); Mean Platelet Volume 10.4 fL (7.4-10.4); Platelet Count 281 10x3/uL (130-400); RBC Distribution Width 22.3 % (11.5-14.5); Red Blood Cell (RBC) Count 4.79 mill/uL (4.70-6.10); White Blood Cell (WBC) Count 11.2 10x3/uL (4.8-10.8)
[2023-03-26 05:01] LABS: Anion Gap 15 mmol/L (10-20); BUN (Urea Nitrogen) 51 mg/dL (8.9-20.6); Calc. Creatinine Clearance 71 mL/min (70-130); Calcium 8.5 mg/dL (7.8-10.44); Carbon Dioxide 23 mmol/L (22-29); Chloride 101 mmol/L (98-107); Estimated GFR 38; Glucose 181 mg/dL (70-105); Magnesium 2.3 mg/dL (1.6-2.6); Potassium 4.1 mmol/L (3.5-5.1); Sodium 135 mmol/L (136-145)
[2023-03-26 06:52] LABS: Anisocytosis SLIGHT = 6-15 cells HPF (0-5); Burr Cells SLIGHT = 2-5 cells HPF (0-1); CellaVision Operator ID LAB.JMM; Elliptocytes SLIGHT = 2-5 cells HPF (0-1); Macrocytosis SLIGHT = 6-15 cells HPF (0-5); Platelet Adequacy Comment Platelets Normal; Polychromasia SLIGHT = 2-3 cells HPF (0-2)
[2023-03-26] MEDS ORDERED: Metolazone 2.5 MG TAB PO SCH ×2 (08:30→12:45)
[2023-03-26] MEDS ORDERED: Furosemide 40 MG (4 mL) VIAL SLOW IVP SCH (09:00)
[2023-03-26] MEDS: Potassium Bicarbonate/Cit Ac 20 MEQ TAB PO SCH ×2 (09:20→17:53)
[2023-03-26] MEDS: glipiZIDE 10 MG TAB PO SCH ×2 (09:21→17:54)
[2023-03-26] MEDS: Heparin 5,000 UNITS/ML VIAL SC SCH ×3 (09:21→21:07)
[2023-03-26] MEDS: Sulfameth/Trimethoprim DS 800-160mg TAB PO SCH ×3 (09:21→21:07)
[2023-03-26] MEDS: Carvedilol 3.125 MG TAB PO SCH ×2 (09:26→17:54)
[2023-03-26] MEDS: Insulin Regular 300 UNITS/3 ML VIAL SC PRN (12:35)
[2023-03-26] MEDS ORDERED: Albumin 25% 25 GM (100 mL) BOT IVPB SCH (12:45)
[2023-03-26] MEDS: Albumin 25% 25 GM (100 mL) BOT IVPB SCH ×2 (13:37→17:53)
[2023-03-26] MEDS ORDERED: Metolazone 5 MG TAB PO SCH (14:00)
[2023-03-26] MEDS: Furosemide 100 MG, Admixture Fee 1 EACH in Sodium Chloride 0.9% 100 ML IVPB SCH (14:42)
[2023-03-26] MEDS: Vancomycin (BATCH) 1.5 GM in Premix 1 BAG IVPB SCH (17:53)
[2023-03-26] MEDS: Saccharomyces boulardii 250 MG CAP PO SCH (21:07)
[2023-03-26] MEDS: Insulin Glargine 30 UNITS/0.3 ML VIAL SC SCH (21:07)
[2023-03-27] MEDS: Albumin 25% 25 GM (100 mL) BOT IVPB SCH ×6 (00:26→21:00)
[2023-03-27 04:45] LABS: #Eosinphils 0.2 thou/uL (0.0-0.7); #Monocytes 0.6 thou/uL (0.11-0.59); #Neutrophils 6.9 thou/uL (1.40-6.50); %Basophils 0.4 % (0.0-1.0); %Eosinophils 1.7 % (0.0-10.0); %Lymphocytes 18.5 % (21.0-51.0); %Monocytes 6.3 % (0.0-10.0); %Neutrophils 72.6 % (42.0-75.0); Hematocrit 29.8 % (42.0-52.0); Hemoglobin 8.2 g/dL (14.0-18.0); Mean Corpuscular HGB CONC 27.5 g/dL (32.0-36.0); Mean Corpuscular Hemoglobin 18.3 pg (27.0-31.0); Mean Corpuscular Volume 66.7 fl (78.0-98.0); Mean Platelet Volume 10.1 fL (7.4-10.4); Platelet Count 233 10x3/uL (130-400); RBC Distribution Width 22.4 % (11.5-14.5); Red Blood Cell (RBC) Count 4.47 mill/uL (4.70-6.10); White Blood Cell (WBC) Count 9.6 10x3/uL (4.8-10.8)
[2023-03-27 05:13] LABS: ALT (SGPT) 17 U/L (8-55); AST (SGOT) 33 U/L (5-34); Albumin 3.1 g/dL (3.5-5.0); Alkaline Phosphatase 78 U/L (40-110); Anion Gap 19 mmol/L (10-20); BUN (Urea Nitrogen) 52 mg/dL (8.9-20.6); Bilirubin, Total 3.2 mg/dL (0.2-1.2); Calc. Creatinine Clearance 59 mL/min (70-130); Calcium 8.8 mg/dL (7.8-10.44); Carbon Dioxide 22 mmol/L (22-29); Chloride 102 mmol/L (98-107); Estimated GFR 31; Globulin 5.4 g/dL (2.4-3.5); Glucose 69 mg/dL (70-105); Magnesium 2.3 mg/dL (1.6-2.6); Potassium 4.6 mmol/L (3.5-5.1); Protein, Total 8.5 g/dL (6.0-8.3); Sodium 138 mmol/L (136-145)
[2023-03-27 05:38] LABS: CellaVision Operator ID lab.abc; Elliptocytes SLIGHT = 2-5 cells HPF (0-1); Hypochromia SLIGHT = 6-15 cells HPF (0-5); Large Platelets 9.1 % (0-5); Microcytosis SLIGHT = 6-15 cells HPF (0-5); Platelet Adequacy Comment Platelets Normal; Polychromasia MODERATE = 3-4 cells HPF (0-2); Smudge Cells 12.1 %; Target Cells SLIGHT = 2-5 cells HPF (0-1)
[2023-03-27] MEDS ORDERED: Metolazone 5 MG TAB PO SCH (08:30)
[2023-03-27] MEDS: Potassium Bicarbonate/Cit Ac 20 MEQ TAB PO SCH (09:28)
[2023-03-27] MEDS: glipiZIDE 10 MG TAB PO SCH ×2 (09:31→17:16)
[2023-03-27] MEDS: Carvedilol 3.125 MG TAB PO SCH ×2 (09:33→17:50)
[2023-03-27] MEDS: Heparin 5,000 UNITS/ML VIAL SC SCH ×3 (09:37→21:00)
[2023-03-27] MEDS: cefTRIAXone\\ROCEPHIN 2 GM in Sodium Chloride 0.9% 100 ML IVPB SCH (15:15)
[2023-03-27] MEDS ORDERED: Vancomycin (BATCH) 1.25 GM in Premix 1 BAG IVPB SCH (18:00)
[2023-03-27] MEDS: Furosemide 100 MG, Admixture Fee 1 EACH in Sodium Chloride 0.9% 100 ML IVPB SCH (18:34)
[2023-03-27] MEDS: Saccharomyces boulardii 250 MG CAP PO SCH (21:00)
[2023-03-27] MEDS: Insulin Glargine 30 UNITS/0.3 ML VIAL SC SCH (21:01)
[2023-03-28] MEDS: Albumin 25% 25 GM (100 mL) BOT IVPB SCH ×3 (02:26→18:38)
[2023-03-28 04:47] LABS: #Eosinphils 0.1 thou/uL (0.0-0.7); #Monocytes 0.5 thou/uL (0.11-0.59); %Basophils 0.4 % (0.0-1.0); %Eosinophils 1.5 % (0.0-10.0); %Lymphocytes 18.9 % (21.0-51.0); %Neutrophils 73.2 % (42.0-75.0); Hematocrit 28.5 % (42.0-52.0); Hemoglobin 7.9 g/dL (14.0-18.0); Mean Corpuscular HGB CONC 27.7 g/dL (32.0-36.0); Mean Corpuscular Hemoglobin 18.8 pg (27.0-31.0); Mean Corpuscular Volume 67.7 fl (78.0-98.0); Mean Platelet Volume 10.6 fL (7.4-10.4); Platelet Count 235 10x3/uL (130-400); RBC Distribution Width 22.2 % (11.5-14.5); Red Blood Cell (RBC) Count 4.21 mill/uL (4.70-6.10); White Blood Cell (WBC) Count 9.6 10x3/uL (4.8-10.8)
[2023-03-28 05:06] LABS: Anion Gap 23 mmol/L (10-20); BUN (Urea Nitrogen) 58 mg/dL (8.9-20.6); Calc. Creatinine Clearance 49 mL/min (70-130); Calcium 8.9 mg/dL (7.8-10.44); Carbon Dioxide 18 mmol/L (22-29); Chloride 99 mmol/L (98-107); Estimated GFR 24; Glucose 77 mg/dL (70-105); Sodium 135 mmol/L (136-145)
[2023-03-28] MEDS: glipiZIDE 10 MG TAB PO SCH ×2 (08:49→17:00)
[2023-03-28] MEDS: Carvedilol 3.125 MG TAB PO SCH ×2 (08:49→17:00)
[2023-03-28] MEDS: Heparin 5,000 UNITS/ML VIAL SC SCH ×3 (09:21→21:06)
[2023-03-28] MEDS: Sodium Bicarbonate Tab 325 MG TAB PO SCH ×2 (09:32→21:06)
[2023-03-28] MEDS ORDERED: Torsemide 20 MG TAB PO SCH (12:30)
[2023-03-28] MEDS: cefTRIAXone\\ROCEPHIN 2 GM in Sodium Chloride 0.9% 100 ML IVPB SCH (14:40)
[2023-03-28] MEDS: Saccharomyces boulardii 250 MG CAP PO SCH (21:06)
[2023-03-28] MEDS: Insulin Glargine 30 UNITS/0.3 ML VIAL SC SCH (21:57)
[2023-03-28] MEDS ORDERED: Amiodarone 450 MG in Dextrose 5% in Water 250 ML IVPB SCH (22:15)
[2023-03-28 22:54] LABS: Anion Gap 23 mmol/L (10-20); BUN (Urea Nitrogen) 70 mg/dL (8.9-20.6); Calc. Creatinine Clearance 41 mL/min (70-130); Calcium 9.3 mg/dL (7.8-10.44); Carbon Dioxide 19 mmol/L (22-29); Chloride 100 mmol/L (98-107); Estimated GFR 20; Glucose 89 mg/dL (70-105); Magnesium 2.7 mg/dL (1.6-2.6); Potassium 5.2 mmol/L (3.5-5.1); Sodium 137 mmol/L (136-145)
[2023-03-29] MEDS: Albumin 25% 25 GM (100 mL) BOT IVPB SCH ×5 (00:40→20:50)
[2023-03-29] MEDS ORDERED: Amiodarone 450 MG in Dextrose 5% in Water 250 ML IVPB SCH (03:30)
[2023-03-29] MEDS ORDERED: Amiodarone 150 MG, Admixture Fee 1 EACH in Dextrose 5% in Water 100 ML IVPB SCH (03:30)
[2023-03-29 04:12] LABS: #Basophils 0.1 thou/uL (0.0-0.2); #Eosinphils 0.2 thou/uL (0.0-0.7); #Monocytes 0.6 thou/uL (0.11-0.59); #Neutrophils 7.3 thou/uL (1.40-6.50); %Basophils 0.7 % (0.0-1.0); %Eosinophils 1.6 % (0.0-10.0); %Lymphocytes 18.4 % (21.0-51.0); %Monocytes 5.5 % (0.0-10.0); %Neutrophils 72.7 % (42.0-75.0); Hematocrit 29.4 % (42.0-52.0); Hemoglobin 8.1 g/dL (14.0-18.0); Mean Corpuscular HGB CONC 27.6 g/dL (32.0-36.0); Mean Corpuscular Hemoglobin 19.1 pg (27.0-31.0); Mean Corpuscular Volume 69.3 fl (78.0-98.0); Mean Platelet Volume 10.6 fL (7.4-10.4); Platelet Count 232 10x3/uL (130-400); RBC Distribution Width 22.8 % (11.5-14.5); Red Blood Cell (RBC) Count 4.24 mill/uL (4.70-6.10); White Blood Cell (WBC) Count 10.1 10x3/uL (4.8-10.8)
[2023-03-29] MEDS ORDERED: Heparin 25,000 units/D5W 500 ML IVPB SCH (04:30)
[2023-03-29] MEDS ORDERED: Heparin 10,000 UNITS/ 10 ML VIAL SLOW IVP SCH (04:30)
[2023-03-29] MEDS ORDERED: Midodrine HCl 5 MG TAB PO SCH (04:30)
[2023-03-29 04:48] LABS: Anion Gap 24 mmol/L (10-20); BUN (Urea Nitrogen) 73 mg/dL (8.9-20.6); Calc. Creatinine Clearance 40 mL/min (70-130); Calcium 9.2 mg/dL (7.8-10.44); Carbon Dioxide 18 mmol/L (22-29); Chloride 99 mmol/L (98-107); Estimated GFR 19; Glucose 118 mg/dL (70-105); Sodium 136 mmol/L (136-145)
[2023-03-29 05:53] LABS: Anisocytosis SLIGHT = 6-15 cells HPF (0-5); CellaVision Operator ID lab.abc; Hypochromia MODERATE=16-30 cells HPF (0-5); Microcytosis SLIGHT = 6-15 cells HPF (0-5); Platelet Adequacy Comment Platelets Normal; Polychromasia SLIGHT = 2-3 cells HPF (0-2)
[2023-03-29] MEDS ORDERED: Digoxin 0.5 MG/2 ML AMP SLOW IVP SCH (08:45)
[2023-03-29] MEDS: glipiZIDE 10 MG TAB PO SCH ×2 (08:49→14:17)
[2023-03-29] MEDS: Sodium Bicarbonate Tab 325 MG TAB PO SCH ×2 (08:49→20:51)
[2023-03-29] MEDS: Carvedilol 3.125 MG TAB PO SCH ×2 (08:54→17:28)
[2023-03-29] MEDS ORDERED: Apixaban 2.5 MG TAB PO SCH (09:00)
[2023-03-29] MEDS ORDERED: Torsemide 20 MG TAB PO SCH (09:00)
[2023-03-29] MEDS: Digoxin 0.125 MG TAB PO SCH (10:03)
[2023-03-29] MEDS: cefTRIAXone\\ROCEPHIN 2 GM in Sodium Chloride 0.9% 100 ML IVPB SCH (14:18)
[2023-03-29] MEDS ORDERED: Bumetanide 1 MG/4 ML VIAL IVP SCH (16:00)
[2023-03-29] MEDS: Minocycline HCl 50 MG CAP PO SCH (17:26)
[2023-03-29] MEDS: Amiodarone 450 MG in Dextrose 5% in Water 250 ML IVPB SCH (17:27)
[2023-03-29] MEDS: Insulin Glargine 30 UNITS/0.3 ML VIAL SC SCH (20:51)
[2023-03-29] MEDS: Saccharomyces boulardii 250 MG CAP PO SCH (20:51)
[2023-03-29] MEDS ORDERED: Apixaban 5 MG TAB PO SCH (21:00)
[2023-03-30] MEDS: Amiodarone 450 MG in Dextrose 5% in Water 250 ML IVPB SCH (02:41)
[2023-03-30] MEDS: Albumin 25% 25 GM (100 mL) BOT IVPB SCH (02:49)
[2023-03-30 04:21] LABS: #Basophils 0.1 thou/uL (0.0-0.2); #Eosinphils 0.4 thou/uL (0.0-0.7); #Monocytes 0.8 thou/uL (0.11-0.59); #Neutrophils 10.5 thou/uL (1.40-6.50); %Basophils 0.5 % (0.0-1.0); %Eosinophils 2.6 % (0.0-10.0); %Monocytes 6.2 % (0.0-10.0); %Neutrophils 76.9 % (42.0-75.0); Hematocrit 26.1 % (42.0-52.0); Hemoglobin 7.3 g/dL (14.0-18.0); Mean Corpuscular Volume 67.8 fl (78.0-98.0); Mean Platelet Volume 10.8 fL (7.4-10.4); Platelet Count 220 10x3/uL (130-400); RBC Distribution Width 23.2 % (11.5-14.5); Red Blood Cell (RBC) Count 3.85 mill/uL (4.70-6.10); White Blood Cell (WBC) Count 13.6 10x3/uL (4.8-10.8)
[2023-03-30 04:50] LABS: Anion Gap 21 mmol/L (10-20); BUN (Urea Nitrogen) 80 mg/dL (8.9-20.6); Calc. Creatinine Clearance 36 mL/min (70-130); Calcium 9.2 mg/dL (7.8-10.44); Carbon Dioxide 21 mmol/L (22-29); Chloride 99 mmol/L (98-107); Cholesterol 28 mg/dl (< 200 Desired); Estimated GFR 17; HDL Cholesterol Less than 8 mg/dL (>60 Neg Risk); Potassium 4.4 mmol/L (3.5-5.1); Sodium 137 mmol/L (136-145); Triglycerides 45 mg/dL (Less than 150)
[2023-03-30 04:57] LABS: Cardiac Risk TEST NOT PERFORMED (Less than 4.5); Critical Call Chemistry NUR.RS8@0457; Glucose 54 mg/dL (70-105)
[2023-03-30 05:08] LABS: Anisocytosis MARKED = >30 cells HPF (0-5); CellaVision Operator ID LAB.JMM; Elliptocytes SLIGHT = 2-5 cells HPF (0-1); Hypochromia MODERATE=16-30 cells HPF (0-5); Macrocytosis SLIGHT = 6-15 cells HPF (0-5); Microcytosis SLIGHT = 6-15 cells HPF (0-5); Ovalocytes SLIGHT = 2-5 cells HPF (0-1); Platelet Adequacy Comment Platelets Normal; Polychromasia SLIGHT = 2-3 cells HPF (0-2); RBC Morphology 2; Target Cells SLIGHT = 2-5 cells HPF (0-1)
[2023-03-30] MEDS: Minocycline HCl 50 MG CAP PO SCH ×2 (06:06→17:29)
[2023-03-30] MEDS: Bumetanide 1 MG/4 ML VIAL IVP SCH ×2 (06:08→14:57)
[2023-03-30] MEDS: glipiZIDE 10 MG TAB PO SCH ×2 (09:29→15:28)
[2023-03-30] MEDS: Digoxin 0.125 MG TAB PO SCH (09:33)
[2023-03-30] MEDS: Sodium Bicarbonate Tab 325 MG TAB PO SCH ×2 (09:33→21:19)
[2023-03-30] MEDS: Carvedilol 3.125 MG TAB PO SCH ×2 (09:33→17:29)
[2023-03-30] MEDS ORDERED: Amiodarone 200 MG TAB PO SCH (09:45)
[2023-03-30 12:44] LABS: #Basophils 0.1 thou/uL (0.0-0.2); #Eosinphils 0.4 thou/uL (0.0-0.7); #Monocytes 0.7 thou/uL (0.11-0.59); #Neutrophils 8.9 thou/uL (1.40-6.50); %Basophils 0.5 % (0.0-1.0); %Eosinophils 3.1 % (0.0-10.0); %Lymphocytes 14.1 % (21.0-51.0); %Monocytes 5.6 % (0.0-10.0); %Neutrophils 76.1 % (42.0-75.0); Hematocrit 27.5 % (42.0-52.0); Hemoglobin 7.9 g/dL (14.0-18.0); Mean Corpuscular HGB CONC 28.7 g/dL (32.0-36.0); Mean Corpuscular Hemoglobin 19.2 pg (27.0-31.0); Mean Corpuscular Volume 66.7 fl (78.0-98.0); Mean Platelet Volume 10.6 fL (7.4-10.4); Platelet Count 233 10x3/uL (130-400); RBC Distribution Width 23.9 % (11.5-14.5); Red Blood Cell (RBC) Count 4.12 mill/uL (4.70-6.10); White Blood Cell (WBC) Count 11.7 10x3/uL (4.8-10.8)
[2023-03-30] MEDS: cefTRIAXone\\ROCEPHIN 2 GM in Sodium Chloride 0.9% 100 ML IVPB SCH (14:57)
[2023-03-30] MEDS: Insulin Glargine 30 UNITS/0.3 ML VIAL SC SCH (21:00)
[2023-03-30] MEDS: Saccharomyces boulardii 250 MG CAP PO SCH (21:19)
[2023-03-30] MEDS: Amiodarone 200 MG TAB PO SCH (21:20)
[2023-03-30 23:22] LABS: #Basophils 0.1 thou/uL (0.0-0.2); #Eosinphils 0.4 thou/uL (0.0-0.7); #Monocytes 0.6 thou/uL (0.11-0.59); #Neutrophils 8.5 thou/uL (1.40-6.50); %Basophils 0.6 % (0.0-1.0); %Eosinophils 3.8 % (0.0-10.0); %Lymphocytes 12.8 % (21.0-51.0); %Monocytes 5.6 % (0.0-10.0); %Neutrophils 76.5 % (42.0-75.0); Hematocrit 28.2 % (42.0-52.0); Hemoglobin 7.9 g/dL (14.0-18.0); Mean Corpuscular Hemoglobin 19.4 pg (27.0-31.0); Platelet Count 215 10x3/uL (130-400); RBC Distribution Width 24.2 % (11.5-14.5); Red Blood Cell (RBC) Count 4.07 mill/uL (4.70-6.10); White Blood Cell (WBC) Count 11.2 10x3/uL (4.8-10.8)
[2023-03-30 23:24] LABS: Mean Corpuscular Volume 69.3 fl (78.0-98.0)
[2023-03-30 23:43] LABS: ALT (SGPT) 38 U/L (8-55); AST (SGOT) 112 U/L (5-34); Albumin 4.1 g/dL (3.5-5.0); Alkaline Phosphatase 71 U/L (40-110); Anion Gap 15 mmol/L (10-20); BUN (Urea Nitrogen) 89 mg/dL (8.9-20.6); Bilirubin, Total 4.8 mg/dL (0.2-1.2); Calc. Creatinine Clearance 34 mL/min (70-130); Calcium 9.3 mg/dL (7.8-10.44); Carbon Dioxide 25 mmol/L (22-29); Chloride 101 mmol/L (98-107); Estimated GFR 16; Globulin 4.5 g/dL (2.4-3.5); Glucose 83 mg/dL (70-105); Potassium 4.3 mmol/L (3.5-5.1); Protein, Total 8.6 g/dL (6.0-8.3); Sodium 137 mmol/L (136-145)
[2023-03-31 05:24] LABS: Hematocrit 28.2 % (42.0-52.0); Platelet Count 211 10x3/uL (130-400)
[2023-03-31 05:26] LABS: #Basophils 0.1 thou/uL (0.0-0.2); #Eosinphils 0.4 thou/uL (0.0-0.7); #Monocytes 0.6 thou/uL (0.11-0.59); #Neutrophils 8.6 thou/uL (1.40-6.50); %Basophils 0.5 % (0.0-1.0); %Eosinophils 3.3 % (0.0-10.0); %Lymphocytes 12.2 % (21.0-51.0); %Monocytes 5.4 % (0.0-10.0); %Neutrophils 78.1 % (42.0-75.0); Hematocrit 28.3 % (42.0-52.0); Mean Corpuscular HGB CONC 28.3 g/dL (32.0-36.0); Mean Corpuscular Hemoglobin 19.4 pg (27.0-31.0); Mean Corpuscular Volume 68.5 fl (78.0-98.0); Mean Platelet Volume 10.3 fL (7.4-10.4); Platelet Count 222 10x3/uL (130-400); RBC Distribution Width 24.5 % (11.5-14.5); Red Blood Cell (RBC) Count 4.13 mill/uL (4.70-6.10); White Blood Cell (WBC) Count 11.1 10x3/uL (4.8-10.8)
[2023-03-31 05:45] LABS: Anion Gap 20 mmol/L (10-20); BUN (Urea Nitrogen) 84 mg/dL (8.9-20.6); Calc. Creatinine Clearance 35 mL/min (70-130); Calcium 9.1 mg/dL (7.8-10.44); Carbon Dioxide 21 mmol/L (22-29); Chloride 101 mmol/L (98-107); Estimated GFR 16; Glucose 94 mg/dL (70-105); Potassium 3.9 mmol/L (3.5-5.1); Sodium 138 mmol/L (136-145)
[2023-03-31] MEDS: Bumetanide 1 MG/4 ML VIAL IVP SCH ×2 (05:55→13:57)
[2023-03-31] MEDS: Minocycline HCl 50 MG CAP PO SCH ×2 (05:55→17:46)
[2023-03-31 06:16] LABS: Anisocytosis SLIGHT = 6-15 cells HPF (0-5); CellaVision Operator ID lab.abc; Hypochromia SLIGHT = 6-15 cells HPF (0-5); Large Platelets 7.8 % (0-5); Microcytosis SLIGHT = 6-15 cells HPF (0-5); Platelet Adequacy Comment Platelets Normal; Polychromasia MODERATE = 3-4 cells HPF (0-2); Smudge Cells 11.7 %; Target Cells SLIGHT = 2-5 cells HPF (0-1)
[2023-03-31] MEDS: glipiZIDE 10 MG TAB PO SCH ×2 (08:52→17:48)
[2023-03-31] MEDS: Carvedilol 3.125 MG TAB PO SCH ×2 (08:52→17:45)
[2023-03-31] MEDS: Albumin 25% 25 GM (100 mL) BOT IVPB SCH ×3 (08:53→20:31)
[2023-03-31] MEDS: Digoxin 0.125 MG TAB PO SCH (08:54)
[2023-03-31] MEDS: Amiodarone 200 MG TAB PO SCH ×2 (08:54→20:30)
[2023-03-31] MEDS: Sodium Bicarbonate Tab 325 MG TAB PO SCH ×2 (08:55→20:31)
[2023-03-31] MEDS: cefTRIAXone\\ROCEPHIN 2 GM in Sodium Chloride 0.9% 100 ML IVPB SCH (13:57)
[2023-03-31] MEDS: Saccharomyces boulardii 250 MG CAP PO SCH (20:56)
[2023-03-31] MEDS: Insulin Glargine 30 UNITS/0.3 ML VIAL SC SCH (21:00)
[2023-04-01] MEDS: Albumin 25% 25 GM (100 mL) BOT IVPB SCH (03:22)
[2023-04-01] MEDS: Minocycline HCl 50 MG CAP PO SCH ×2 (05:20→17:06)
[2023-04-01] MEDS: Bumetanide 1 MG/4 ML VIAL IVP SCH ×2 (05:21→12:45)
[2023-04-01 06:41] LABS: #Basophils 0.1 thou/uL (0.0-0.2); #Eosinphils 0.4 thou/uL (0.0-0.7); #Monocytes 0.5 thou/uL (0.11-0.59); #Neutrophils 5.6 thou/uL (1.40-6.50); %Basophils 0.7 % (0.0-1.0); %Eosinophils 5.1 % (0.0-10.0); %Lymphocytes 14.9 % (21.0-51.0); %Monocytes 5.9 % (0.0-10.0); %Neutrophils 73.1 % (42.0-75.0); Hematocrit 28.2 % (42.0-52.0); Hemoglobin 7.9 g/dL (14.0-18.0); Mean Corpuscular Hemoglobin 19.3 pg (27.0-31.0); Mean Corpuscular Volume 68.8 fl (78.0-98.0); Mean Platelet Volume 10.1 fL (7.4-10.4); Platelet Count 173 10x3/uL (130-400); RBC Distribution Width 25.3 % (11.5-14.5); White Blood Cell (WBC) Count 7.6 10x3/uL (4.8-10.8)
[2023-04-01 07:11] LABS: Anion Gap 18 mmol/L (10-20); BUN (Urea Nitrogen) 93 mg/dL (8.9-20.6); Calc. Creatinine Clearance 38 mL/min (70-130); Calcium 9.4 mg/dL (7.8-10.44); Carbon Dioxide 23 mmol/L (22-29); Chloride 101 mmol/L (98-107); Estimated GFR 17; Glucose 171 mg/dL (70-105); Potassium 3.7 mmol/L (3.5-5.1); Sodium 138 mmol/L (136-145)
[2023-04-01] MEDS: Sodium Bicarbonate Tab 325 MG TAB PO SCH ×2 (07:32→21:36)
[2023-04-01] MEDS: Carvedilol 3.125 MG TAB PO SCH ×2 (07:32→17:06)
[2023-04-01] MEDS: Digoxin 0.125 MG TAB PO SCH (07:32)
[2023-04-01] MEDS: Amiodarone 200 MG TAB PO SCH ×2 (07:32→21:36)
[2023-04-01] MEDS: glipiZIDE 10 MG TAB PO SCH ×2 (07:33→17:06)
[2023-04-01 08:25] LABS: Anisocytosis MARKED = >30 cells HPF (0-5); Burr Cells SLIGHT = 2-5 cells HPF (0-1); CellaVision Operator ID LAB.KW3; Hypochromia MODERATE=16-30 cells HPF (0-5); Macrocytosis MODERATE=16-30 cells HPF (0-5); Platelet Adequacy Comment Platelets Normal; Polychromasia SLIGHT = 2-3 cells HPF (0-2); Schistocytes SLIGHT = 2-5 cells HPF (0-1); Target Cells SLIGHT = 2-5 cells HPF (0-1)
[2023-04-01] MEDS: Insulin Regular 300 UNITS/3 ML VIAL SC PRN (12:42)
[2023-04-01] MEDS: cefTRIAXone\\ROCEPHIN 2 GM in Sodium Chloride 0.9% 100 ML IVPB SCH (12:43)
[2023-04-01] MEDS: EPOETIN ALFA-EPBX (ESRD) 10,000 UNITS/ML VIAL SC SCH (14:56)
[2023-04-01] MEDS: Insulin Glargine 30 UNITS/0.3 ML VIAL SC SCH (21:36)
[2023-04-01] MEDS: Saccharomyces boulardii 250 MG CAP PO SCH (21:36)
[2023-04-01] MEDS: Apixaban 5 MG TAB PO SCH (21:36)
[2023-04-02 05:04] LABS: Hematocrit 28.7 % (42.0-52.0); Hemoglobin 8.2 g/dL (14.0-18.0); Platelet Count 188 10x3/uL (130-400)
[2023-04-02 05:18] LABS: Anion Gap 16 mmol/L (10-20); BUN (Urea Nitrogen) 97 mg/dL (8.9-20.6); Calc. Creatinine Clearance 43 mL/min (70-130); Calcium 9.4 mg/dL (7.8-10.44); Carbon Dioxide 24 mmol/L (22-29); Chloride 101 mmol/L (98-107); Estimated GFR 20; Glucose 120 mg/dL (70-105); Potassium 3.1 mmol/L (3.5-5.1); Sodium 138 mmol/L (136-145)
[2023-04-02 05:22] LABS: Digoxin 0.86 ng/mL (0.8-2.0)
[2023-04-02] MEDS: Minocycline HCl 50 MG CAP PO SCH ×2 (06:24→17:35)
[2023-04-02] MEDS: Bumetanide 1 MG/4 ML VIAL IVP SCH ×2 (06:24→15:01)
[2023-04-02] MEDS ORDERED: Potassium Chloride 20 MEQ TAB PO SCH ×2 (08:15→12:00)
[2023-04-02] MEDS: Digoxin 0.125 MG TAB PO SCH (09:07)
[2023-04-02] MEDS: glipiZIDE 10 MG TAB PO SCH ×2 (09:07→17:35)
[2023-04-02] MEDS: Carvedilol 3.125 MG TAB PO SCH ×2 (09:08→17:35)
[2023-04-02] MEDS: Amiodarone 200 MG TAB PO SCH ×2 (09:09→21:10)
[2023-04-02] MEDS: Sodium Bicarbonate Tab 325 MG TAB PO SCH ×2 (09:09→21:10)
[2023-04-02] MEDS: Apixaban 5 MG TAB PO SCH ×2 (09:09→21:10)
[2023-04-02] MEDS: cefTRIAXone\\ROCEPHIN 2 GM in Sodium Chloride 0.9% 100 ML IVPB SCH (13:20)
[2023-04-02] MEDS: Saccharomyces boulardii 250 MG CAP PO SCH (21:09)
[2023-04-02] MEDS: Insulin Glargine 30 UNITS/0.3 ML VIAL SC SCH (21:10)
[2023-04-03 05:24] LABS: #Basophils 0.1 thou/uL (0.0-0.2); #Eosinphils 0.5 thou/uL (0.0-0.7); #Monocytes 0.5 thou/uL (0.11-0.59); #Neutrophils 6.8 thou/uL (1.40-6.50); %Basophils 0.7 % (0.0-1.0); %Eosinophils 5.8 % (0.0-10.0); %Monocytes 5.7 % (0.0-10.0); %Neutrophils 75.4 % (42.0-75.0); Hematocrit 29.5 % (42.0-52.0); Hemoglobin 8.2 g/dL (14.0-18.0); Mean Corpuscular HGB CONC 27.8 g/dL (32.0-36.0); Mean Corpuscular Volume 68.3 fl (78.0-98.0); Mean Platelet Volume 10.6 fL (7.4-10.4); Platelet Count 185 10x3/uL (130-400); RBC Distribution Width 27.3 % (11.5-14.5); Red Blood Cell (RBC) Count 4.32 mill/uL (4.70-6.10)
[2023-04-03 05:46] LABS: Anion Gap 16 mmol/L (10-20); BUN (Urea Nitrogen) 92 mg/dL (8.9-20.6); Calc. Creatinine Clearance 51 mL/min (70-130); Calcium 9.4 mg/dL (7.8-10.44); Carbon Dioxide 26 mmol/L (22-29); Chloride 100 mmol/L (98-107); Estimated GFR 25; Glucose 136 mg/dL (70-105); Magnesium 2.3 mg/dL (1.6-2.6); Potassium 3.3 mmol/L (3.5-5.1); Sodium 139 mmol/L (136-145)
[2023-04-03] MEDS: Minocycline HCl 50 MG CAP PO SCH ×2 (06:30→17:13)
[2023-04-03] MEDS: Bumetanide 1 MG/4 ML VIAL IVP SCH ×2 (06:30→13:49)
[2023-04-03] MEDS: Sodium Bicarbonate Tab 325 MG TAB PO SCH (09:05)
[2023-04-03] MEDS: Digoxin 0.125 MG TAB PO SCH (09:06)
[2023-04-03] MEDS: Apixaban 5 MG TAB PO SCH ×2 (09:07→20:18)
[2023-04-03] MEDS: Carvedilol 3.125 MG TAB PO SCH ×2 (09:07→17:13)
[2023-04-03] MEDS: glipiZIDE 10 MG TAB PO SCH ×2 (09:09→17:13)
[2023-04-03] MEDS: Amiodarone 200 MG TAB PO SCH ×2 (09:09→20:19)
[2023-04-03] MEDS: Insulin Regular 300 UNITS/3 ML VIAL SC PRN (11:16)
[2023-04-03] MEDS: Potassium Chloride 20 MEQ TAB PO SCH ×2 (13:47→19:05)
[2023-04-03] MEDS: cefTRIAXone\\ROCEPHIN 2 GM in Sodium Chloride 0.9% 100 ML IVPB SCH (13:48)
[2023-04-03] MEDS: Saccharomyces boulardii 250 MG CAP PO SCH (20:19)
[2023-04-03] MEDS: Insulin Glargine 30 UNITS/0.3 ML VIAL SC SCH (20:38)
[2023-04-04] MEDS: Minocycline HCl 50 MG CAP PO SCH ×2 (05:14→17:54)
[2023-04-04] MEDS: Bumetanide 1 MG/4 ML VIAL IVP SCH ×2 (05:14→13:49)
[2023-04-04 06:50] LABS: Hematocrit 28.9 % (42.0-52.0); Platelet Count 157 10x3/uL (130-400)
[2023-04-04] MEDS: Digoxin 0.125 MG TAB PO SCH (09:58)
[2023-04-04] MEDS: glipiZIDE 10 MG TAB PO SCH ×2 (09:59→17:54)
[2023-04-04] MEDS: Apixaban 5 MG TAB PO SCH ×2 (09:59→20:09)
[2023-04-04] MEDS: Amiodarone 200 MG TAB PO SCH ×2 (10:01→20:09)
[2023-04-04] MEDS: Carvedilol 3.125 MG TAB PO SCH ×2 (10:04→17:57)
[2023-04-04] MEDS: Insulin Regular 300 UNITS/3 ML VIAL SC PRN (11:56)
[2023-04-04] MEDS: cefTRIAXone\\ROCEPHIN 2 GM in Sodium Chloride 0.9% 100 ML IVPB SCH (13:50)
[2023-04-04] MEDS: Saccharomyces boulardii 250 MG CAP PO SCH (20:09)
[2023-04-04] MEDS: Insulin Glargine 30 UNITS/0.3 ML VIAL SC SCH (21:12)
[2023-04-05] MEDS: Minocycline HCl 50 MG CAP PO SCH ×2 (04:35→17:04)
[2023-04-05] MEDS: Bumetanide 1 MG/4 ML VIAL IVP SCH ×2 (04:35→14:37)
[2023-04-05] MEDS: Insulin Regular 300 UNITS/3 ML VIAL SC PRN ×2 (05:36→17:09)
[2023-04-05 06:32] LABS: Anion Gap 16 mmol/L (10-20); BUN (Urea Nitrogen) 79 mg/dL (8.9-20.6); Calc. Creatinine Clearance 72 mL/min (70-130); Calcium 9.3 mg/dL (7.8-10.44); Carbon Dioxide 27 mmol/L (22-29); Chloride 101 mmol/L (98-107); Estimated GFR 40; Glucose 162 mg/dL (70-105); Potassium 3.1 mmol/L (3.5-5.1); Sodium 141 mmol/L (136-145)
[2023-04-05] MEDS: Digoxin 0.125 MG TAB PO SCH (09:00)
[2023-04-05] MEDS: glipiZIDE 10 MG TAB PO SCH ×2 (09:01→17:05)
[2023-04-05] MEDS: Carvedilol 3.125 MG TAB PO SCH ×2 (09:02→17:05)
[2023-04-05] MEDS: Apixaban 5 MG TAB PO SCH ×2 (09:02→20:57)
[2023-04-05] MEDS: Amiodarone 200 MG TAB PO SCH ×2 (09:02→20:57)
[2023-04-05] MEDS ORDERED: Potassium Chloride 20 MEQ TAB PO SCH (10:15)
[2023-04-05] MEDS: cefTRIAXone\\ROCEPHIN 2 GM in Sodium Chloride 0.9% 100 ML IVPB SCH (14:37)
[2023-04-05] MEDS: Insulin Glargine 30 UNITS/0.3 ML VIAL SC SCH (20:57)
[2023-04-05] MEDS: Saccharomyces boulardii 250 MG CAP PO SCH (20:57)
[2023-04-06] MEDS: Bumetanide 1 MG/4 ML VIAL IVP SCH ×2 (05:07→12:53)
[2023-04-06] MEDS: Minocycline HCl 50 MG CAP PO SCH ×2 (05:07→17:09)
[2023-04-06 05:10] LABS: Hematocrit 29.1 % (42.0-52.0); Hemoglobin 7.9 g/dL (14.0-18.0); Platelet Count 154 10x3/uL (130-400)
[2023-04-06 05:31] LABS: Anion Gap 15 mmol/L (10-20); BUN (Urea Nitrogen) 67 mg/dL (8.9-20.6); Calc. Creatinine Clearance 78 mL/min (70-130); Calcium 9.1 mg/dL (7.8-10.44); Carbon Dioxide 27 mmol/L (22-29); Chloride 101 mmol/L (98-107); Estimated GFR 44; Glucose 243 mg/dL (70-105); Potassium 3.2 mmol/L (3.5-5.1); Sodium 140 mmol/L (136-145)
[2023-04-06] MEDS: Insulin Regular 300 UNITS/3 ML VIAL SC PRN ×2 (06:48→11:16)
[2023-04-06] MEDS: Digoxin 0.125 MG TAB PO SCH (08:40)
[2023-04-06] MEDS: Amiodarone 200 MG TAB PO SCH ×2 (08:40→21:16)
[2023-04-06] MEDS: Apixaban 5 MG TAB PO SCH ×2 (08:41→21:15)
[2023-04-06] MEDS: Carvedilol 3.125 MG TAB PO SCH ×2 (08:41→15:57)
[2023-04-06] MEDS: glipiZIDE 10 MG TAB PO SCH ×2 (08:42→15:41)
[2023-04-06] MEDS: cefTRIAXone\\ROCEPHIN 2 GM in Sodium Chloride 0.9% 100 ML IVPB SCH (12:52)
[2023-04-06] MEDS ORDERED: Potassium Chloride 20 MEQ TAB PO SCH (13:00)
[2023-04-06] MEDS: Saccharomyces boulardii 250 MG CAP PO SCH (21:16)
[2023-04-06] MEDS: Insulin Glargine 30 UNITS/0.3 ML VIAL SC SCH (21:16)
[2023-04-07 08:02] LABS: Anion Gap 17 mmol/L (10-20); BUN (Urea Nitrogen) 67 mg/dL (8.9-20.6); Calc. Creatinine Clearance 86 mL/min (70-130); Calcium 9.2 mg/dL (7.8-10.44); Carbon Dioxide 28 mmol/L (22-29); Chloride 101 mmol/L (98-107); Estimated GFR 49; Glucose 131 mg/dL (70-105); Potassium 3.6 mmol/L (3.5-5.1); Sodium 142 mmol/L (136-145)
[2023-04-07] MEDS: Minocycline HCl 50 MG CAP PO SCH ×2 (08:57→16:53)
[2023-04-07] MEDS: Bumetanide 1 MG/4 ML VIAL IVP SCH ×2 (08:57→14:32)
[2023-04-07] MEDS: Amiodarone 200 MG TAB PO SCH ×2 (09:43→21:01)
[2023-04-07] MEDS: glipiZIDE 10 MG TAB PO SCH ×2 (09:43→14:32)
[2023-04-07] MEDS: Apixaban 5 MG TAB PO SCH ×2 (09:43→21:01)
[2023-04-07] MEDS: Digoxin 0.125 MG TAB PO SCH (09:43)
[2023-04-07] MEDS: Carvedilol 3.125 MG TAB PO SCH ×2 (09:43→16:53)
[2023-04-07] MEDS ORDERED: Tamsulosin HCl 0.4 MG CAP PO SCH (10:45)
[2023-04-07] MEDS: Insulin Regular 300 UNITS/3 ML VIAL SC PRN ×2 (11:16→18:00)
[2023-04-07] MEDS ORDERED: Potassium Chloride 20 MEQ TAB PO SCH (13:00)
[2023-04-07] MEDS: cefTRIAXone\\ROCEPHIN 2 GM in Sodium Chloride 0.9% 100 ML IVPB SCH (14:32)
[2023-04-07] MEDS: Saccharomyces boulardii 250 MG CAP PO SCH (21:01)
[2023-04-07] MEDS: Insulin Glargine 30 UNITS/0.3 ML VIAL SC SCH (21:01)
[2023-04-08] MEDS: Bumetanide 1 MG/4 ML VIAL IVP SCH ×2 (05:56→13:42)
[2023-04-08] MEDS: Minocycline HCl 50 MG CAP PO SCH ×2 (05:57→16:27)
[2023-04-08 07:13] LABS: Anion Gap 12 mmol/L (10-20); BUN (Urea Nitrogen) 62 mg/dL (8.9-20.6); Calc. Creatinine Clearance 92 mL/min (70-130); Calcium 8.8 mg/dL (7.8-10.44); Carbon Dioxide 28 mmol/L (22-29); Chloride 106 mmol/L (98-107); Estimated GFR 53; Glucose 150 mg/dL (70-105); Potassium 3.2 mmol/L (3.5-5.1); Sodium 143 mmol/L (136-145)
[2023-04-08] MEDS: Carvedilol 3.125 MG TAB PO SCH ×2 (08:25→16:28)
[2023-04-08] MEDS: Digoxin 0.125 MG TAB PO SCH (08:25)
[2023-04-08] MEDS: Apixaban 5 MG TAB PO SCH ×2 (08:25→20:38)
[2023-04-08] MEDS: Tamsulosin HCl 0.4 MG CAP PO SCH (08:25)
[2023-04-08] MEDS: Amiodarone 200 MG TAB PO SCH ×2 (08:26→20:38)
[2023-04-08] MEDS: glipiZIDE 10 MG TAB PO SCH ×2 (08:26→15:40)
[2023-04-08] MEDS ORDERED: Potassium Chloride 20 MEQ TAB PO SCH (08:30)
[2023-04-08] MEDS: Insulin Regular 300 UNITS/3 ML VIAL SC PRN ×2 (11:12→16:28)
[2023-04-08 12:11] VITALS: BMI 32.4
[2023-04-08] MEDS: EPOETIN ALFA-EPBX (ESRD) 10,000 UNITS/ML VIAL SC SCH (13:42)
[2023-04-08] MEDS: cefTRIAXone\\ROCEPHIN 2 GM in Sodium Chloride 0.9% 100 ML IVPB SCH (13:42)
[2023-04-08] MEDS ORDERED: Spironolactone 25 MG TAB PO SCH (15:45)
[2023-04-08] MEDS: Insulin Glargine 30 UNITS/0.3 ML VIAL SC SCH (20:38)
[2023-04-08] MEDS: Saccharomyces boulardii 250 MG CAP PO SCH (20:38)
[2023-04-08] MEDS ORDERED: Ivermectin 3 MG TAB PO SCH ×2 (23:00→23:15)
[2023-04-09] MEDS: Minocycline HCl 50 MG CAP PO SCH ×2 (05:18→18:14)
[2023-04-09] MEDS: Bumetanide 1 MG/4 ML VIAL IVP SCH ×2 (05:18→14:25)
[2023-04-09 05:59] LABS: Hematocrit 28.6 % (42.0-52.0); Hemoglobin 7.9 g/dL (14.0-18.0); Mean Corpuscular HGB CONC 27.6 g/dL (32.0-36.0); Mean Corpuscular Hemoglobin 19.8 pg (27.0-31.0); Mean Corpuscular Volume 71.7 fl (78.0-98.0); Platelet Count 146 10x3/uL (130-400); RBC Distribution Width 30.5 % (11.5-14.5); Red Blood Cell (RBC) Count 3.99 mill/uL (4.70-6.10); White Blood Cell (WBC) Count 6.7 10x3/uL (4.8-10.8)
[2023-04-09 06:48] LABS: Anion Gap 14 mmol/L (10-20); BUN (Urea Nitrogen) 53 mg/dL (8.9-20.6); Calc. Creatinine Clearance 110 mL/min (70-130); Calcium 8.6 mg/dL (7.8-10.44); Carbon Dioxide 26 mmol/L (22-29); Chloride 104 mmol/L (98-107); Estimated GFR 65; Glucose 103 mg/dL (70-105); Potassium 3.2 mmol/L (3.5-5.1); Sodium 141 mmol/L (136-145)
[2023-04-09] MEDS ORDERED: Spironolactone 25 MG TAB PO SCH ×2 (08:00→10:45)
[2023-04-09] MEDS ORDERED: Potassium Bicarbonate/Cit Ac 20 MEQ TAB PO SCH (08:30)
[2023-04-09] MEDS ORDERED: Potassium Chloride 20 MEQ TAB PO SCH (08:30)
[2023-04-09] MEDS: Apixaban 5 MG TAB PO SCH ×2 (10:03→21:09)
[2023-04-09] MEDS: Amiodarone 200 MG TAB PO SCH ×2 (10:04→21:10)
[2023-04-09] MEDS: Carvedilol 3.125 MG TAB PO SCH ×2 (10:05→18:15)
[2023-04-09] MEDS: Digoxin 0.125 MG TAB PO SCH (10:06)
[2023-04-09] MEDS: Tamsulosin HCl 0.4 MG CAP PO SCH (10:07)
[2023-04-09] MEDS: glipiZIDE 10 MG TAB PO SCH ×2 (10:07→18:14)
[2023-04-09] MEDS: Insulin Regular 300 UNITS/3 ML VIAL SC PRN ×3 (14:24→21:10)
[2023-04-09] MEDS: cefTRIAXone\\ROCEPHIN 2 GM in Sodium Chloride 0.9% 100 ML IVPB SCH (14:31)
[2023-04-09] MEDS: Insulin Glargine 30 UNITS/0.3 ML VIAL SC SCH (21:09)
[2023-04-09] MEDS: Saccharomyces boulardii 250 MG CAP PO SCH (21:10)
[2023-04-10 02:20] VITALS: BP 119/70; TEMP 97.6
[2023-04-10] MEDS ORDERED: Spironolactone 25 MG TAB PO SCH (08:00)
[2023-04-13] MEDS ORDERED: Amiodarone 200 MG TAB PO SCH (09:00)
[2023-04-27] MEDS ORDERED: Amiodarone 200 MG TAB PO SCH (09:00)
== END 2023-04-09 21:44 | disposition home or self-care (01) | DRG 871 ==
LOC: 2NO 21:45
PROVIDERS: ADMIT Internal Medicine; ATTEND Internal Medicine
PROC: 3E03329 Introduction of Other Anti-infective into Peripheral Vein, Percutaneous Approach (ICD-10-PCS; 2023-03-19)
PROC: 30233J1 Transfusion of Nonautologous Serum Albumin into Peripheral Vein, Percutaneous Approach (ICD-10-PCS; 2023-03-20)
PROC: 0HB6XZX Excision of Back Skin, External Approach, Diagnostic (ICD-10-PCS; principal; 2023-04-07)
DX: A41.9 Sepsis, unspecified organism (principal); I50.23 Acute on chronic systolic (congestive) heart failure; M86.9 Osteomyelitis, unspecified; L03.116 Cellulitis of left lower limb; N18.4 Chronic kidney disease, stage 4 (severe); I13.0 Hypertensive heart and chronic kidney disease with heart failure and stage 1 through stage 4 chronic kidney disease, or unspecified chronic kidney disease; N17.9 Acute kidney failure, unspecified; E87.1 Hypo-osmolality and hyponatremia; E87.20 Acidosis, unspecified; I42.8 Other cardiomyopathies; E11.69 Type 2 diabetes mellitus with other specified complication; E11.40 Type 2 diabetes mellitus with diabetic neuropathy, unspecified; I87.2 Venous insufficiency (chronic) (peripheral); Z79.899 Other long term (current) drug therapy; E11.628 Type 2 diabetes mellitus with other skin complications; I25.5 Ischemic cardiomyopathy; Z79.4 Long term (current) use of insulin; E87.6 Hypokalemia; E83.42 Hypomagnesemia; Z79.01 Long term (current) use of anticoagulants; D63.1 Anemia in chronic kidney disease; I48.0 Paroxysmal atrial fibrillation; E87.5 Hyperkalemia; E66.01 Morbid (severe) obesity due to excess calories; Z68.32 Body mass index [BMI] 32.0-32.9, adult; N40.0 Benign prostatic hyperplasia without lower urinary tract symptoms; B86 Scabies; Z79.82 Long term (current) use of aspirin; Z79.84 Long term (current) use of oral hypoglycemic drugs; Z98.890 Other specified postprocedural states; Z83.3 Family history of diabetes mellitus; E11.22 Type 2 diabetes mellitus with diabetic chronic kidney disease
CPT/HCPCS: 36415; 36416; 71045; 76770; 80048; 80053; 80061; 80162; 80202; 83735; 83880; 84439; 84443; 84480; 85014; 85018; 85025; 85027; 85049; 85730; 86140; 88305; 88341; 88342; 93005; 93010; 97139; J0282; J0692; J0696; J1160; J1644; J1815; J1940; J3370; J3370-JW; J3490; J7050; J7070; P9047; Q5105